=== PATIENT | male | born 1955 | race Caucasian/White ===

== ENCOUNTER 2020-05-15 16:16 | Emergency (ER) | payer BC, SELFPAY ==
--- NOTE | ~2020-05-15 | CT_ITS ---
EXAMINATION: CT brain wo con DATE: 05/15/2020 17:35 INDICATION: Left arm numbness TECHNIQUE: Computed tomography (CT) of the head was performed without intravenous contrast. The mA wa s adjusted according to patient size. Iterative reconstruction technique was employed. Exam dose: 68 1.00 mGy-cm total exam DLP. COMPARISON: None FINDINGS: No intracranial mass lesion or hemorrhage or cerebrovascular accident, midline shift shift or mass effect is evident. No subdural or epidural hematoma is detected. Bilateral nasal antral windows are noted. Bilateral ethmoidectomies. 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 There is nasal septal deviation. There is soft tissue thickening of bot h frontal sinuses. The mastoid air cells are aerated. No fracture or bone destruction of the cranial vault. Bilateral hyperostosis frontalis interna, not l ikely of any clinical significance. IMPRESSION: No significant intracranial abnormality. Reviewed, dictated and finalized at [facility] Reviewed, dictated and finalized at [facility].
[2020-05-15 16:29] VITALS: BP 173/95; PULSE 87; RESP 18; TEMP 36.6; O2SAT 100
[2020-05-15 16:35] VITALS: BP 175/117; PULSE 82; RESP 14; TEMP 36.6; O2SAT 100
--- NOTE | 2020-05-15 16:35 | ED.GENADULT ---
HPI - General Adult General Chief complaint: Neuro Symptoms/Deficit Stated complaint: NUMBNESS TO ARM, LIGHTHEADED Time Seen by Provider: 05/15/20 16:34 Source: patient and family Mode of arrival: ambulatory Limitations: no limitations History of Present Illness HPI narrative: Patient is a 64-year-old male who was referred to this facility from an urgent care for evaluation of left arm tingling and numbness that started approximately at 11 AM this morning and lasted for less than 30 seconds. Patient states he was having a bowel movement when his left arm became slightly numb and had a tingling sensation in it. He denied concurrent visual changes, difficulty with speech or difficulty with ambulation. Patient states that the numbness rapidly resolved, they did a telehealth appointment with a primary care physician who referred him to an urgent care who then referred them to our facility for assessment. Patient has a history of hypertension, he is not a smoker. He denied any concurrent chest pain, vision changes, weakness. He reported some mild lightheadedness earlier with the numbness and tingling in his arm, but none of that currently. No difficulty with ambulation. No history of stroke. Related Data Home Medications Medication Instructions Recorded Confirmed fluticasone propionate INTRANASAL 05/15/20 irbesartan-hydrochlorothiazide tablet 05/15/20 metoprolol succinate [Toprol XL] PO 05/15/20 mometasone INTRANASAL 05/15/20 Allergies Allergy/AdvReac Type Severity Reaction Status Date / Time No Known Allergies Allergy Verified 05/15/20 16:36 Review of Systems Review of Systems: Narrative: CONSTITUTIONAL: Denies fever, chills, or sweats. EYES: Denies visual changes, redness, or discharge. ENT: Denies rhinorrhea, congestion, sore throat, or otalgia. CARDIOVASCULAR: Denies chest pain, palpitations, or edema. RESPIRATORY: Denies cough or dyspnea. GASTROINTESTINAL: Denies abdominal pain, nausea, vomiting, or diarrhea. GENITOURINARY: Denies dysuria or hematuria. SKIN: Denies rash or itching. MUSCULOSKELETAL: Denies back pain, joint pain, or myalgia. NEUROLOGIC: Denies headache, denies current numbness, or weakness. [facility], [facility] Past Medical History Medical History Cleft palate Hypertension Surgical History Surgical History H/O left wrist surgery Family History Family History (Updated 04/11/19 @ 13:22 by DOCTOR UNKNOWN) Mother Hypertension Cerebrovascular accident, Onset Age: 89 Father Family history of malignant neoplasm, Onset Age: 94 Social History Social History Smoking status: Never smoker Alcohol intake: current Gender identity (if verbalized by the patient): Male Sexual Orientation (if Verbalized by the Patient): Straight or Heterosexual Exam Narrative: Exam Narrative: GENERAL: Awake, alert, conversant HEAD: Normocephalic, atraumatic. EYES: PERRLA and EOMI. ENT: Nares clear, no rhinorrhea or epistaxis. Mucous membranes moist. NECK: Supple. CHEST: No respiratory distress, breathing even and non labored HEART: Regular rate, sinus rhythm ABDOMEN:Non distended, non tender EXTREMITIES: Normal range of motion. No edema. SKIN: Warm, dry, no rash. NEURO:No focal deficits. Alert and oriented x3. Finger to nose intact bilaterally. EOMs intact without nystagmus. No facial droop/asymmetry noted bilaterally. Grimace intact. Intact sensation in face. Hearing intact bilaterally. Shoulder shrug intact. Strength 5/5 bilateral upper extremities. Strength 5/5 bilateral lower extremities. Reflexes 2+ patellar. Heel to [place] intact bilaterally. Ambulatory exam deferred. Course Vital Signs Vital signs: Vital Signs Temperature 36.6 C 05/15/20 16:29 Pulse Rate 87 05/15/20 16:29 Respiratory Rate 18 05/15/20 16:29 Bloo
--- NOTE | 2020-05-15 16:39 | ECG_ITS ---
Measurements Intervals [place] Rate: 71 P: 24 ID: [id number] QRS: 30 QRSD: 106 T: 32 QT: 363 QTc: 397 Interpretive Statements SINUS RHYTHM WITH FIRST DEGREE AV BLOCK CANNOT RULE OUT SEPTAL INFARCT, AGE INDETERMINATE ABNORMAL ECG Electronically Signed On 05-16-2020 7:41:29 CDT by Sixto Miller D.O.
--- NOTE | 2020-05-15 16:41 | PC.NURSE ---
Pt had light headedness, felt like he may pass out for 30 seconds at time of episode
[2020-05-15 16:54] LABS: Basophils Absolute Auto 0.1 K/mm3 (0.0-0.1); Basophils Percent Auto 0.8 % (0.2-1.2); Eosinophils Absolute Auto 0.1 K/mm3 (0-0.3); Eosinophils Percent Auto 1.5 % (0-4.4); Hematocrit 38.8 % (42.0-52.0); Hemoglobin 13.5 g/dL (14.0-18.0); Immature Granulocyte Absolute 0.02 K/mm3 (0.00-0.031); Immature Granulocyte Percent A 0.2 % (0-0.5); Lymphocytes Percent Auto 22.5 % (18.3-44.2); Mean Corpuscular HGB Conc 34.8 g/dl (32-36); Mean Corpuscular Hemoglobin 31.6 pg (26-34); Mean Corpuscular Volume 90.9 fl (80-100); Mean Platelet Volume 9.2 fl (7.4-10.4); Monocytes Absolute Auto 0.4 K/mm3 (0.1-0.6); Monocytes Percent Auto 4.5 % (2.6-8.5); Neutrophils Absolute Auto 6.6 K/mm3 (1.3-6.7); Neutrophils Percent Auto 70.5 % (45.5-73.1); Platelet Count Result 197 k/mm3 (150-375); Red Blood Count 4.27 M/mm3 (4.6-6.20); Red Cell Distribution Width 12.7 % (11.5-14.5); White Blood Count 9.3 K/mm3 (4.5-10.0)
[2020-05-15 16:56] LABS: Add Urine Microscopic? NO; Appearance Urine Clear (Clear); Bilirubin Urine Negative (Negative); Blood Urine Negative (Negative); Color Urine Colorless (Yellow); Glucose Urine UA Negative (Negative); Ketones Urine Negative (Negative); Leukocyte Esterase Ur Negative LEU/UL (Negative); Nitrate Urine Negative (Negative); Protein Urine Negative (Negative); Specific Grav Ur 1.008 (1.001-1.035); Urobilinogen Urine Negative mg/dL (<2.0)
[2020-05-15 17:03] VITALS: BP 149/95; BP 154/98; PULSE 78
[2020-05-15 17:04] VITALS: BP 146/102; PULSE 85; RESP 15; O2SAT 95
[2020-05-15 17:10] LABS: Blood Urea Nitrogen 19 mg/dL (9-20); Calcium 9.8 mg/dL (8.4-10.2); Carbon Dioxide 27 mmol/L (22-30); Chloride 103 mmol/L (98-107); Estimated CRCL calculation 85 ml/min; Estimated Glomerular Filt Rate > 60; Glucose 98 mg/dL (75-110); Potassium 3.9 mmol/L (3.4-5.0); Sodium 138 mmol/L (137-145)
[2020-05-15 17:53] LABS: INR 1.2; Prothrombin Time 14.9 Seconds (11.1-14.7)
[2020-05-15 17:54] LABS: Partial Thromboplastin Time 30.4 SECONDS (22.3-36.8)
[2020-05-15 17:56] LABS: Troponin I < 0.012 ng/mL (0.000-0.034)
[2020-05-15 18:10] VITALS: BP 132/88; PULSE 68; RESP 17; O2SAT 97
[2020-05-15 19:13] VITALS: BP 136/83; PULSE 70; RESP 18; O2SAT 97
== END 2020-05-15 19:15 | disposition home or self-care (01) ==
PROVIDERS: Emergency Provider Emergency Medicine; PCP Family Medicine
DX: R20.2 Paresthesia of skin (principal); I10 Essential (primary) hypertension; I44.0 Atrioventricular block, first degree; R94.31 Abnormal electrocardiogram [ECG] [EKG]
CPT/HCPCS: 36415; 70450; 80048; 81003; 84484; 85025; 85610; 85730; 93005; 99284

== ENCOUNTER 2020-06-24 00:47 | Outpatient (CLI) | payer BC, SELFPAY ==
[2020-06-24 18:19] LABS: SARS-CoV-2 RNA PCR Negative
== END 2020-06-24 00:48 | disposition home or self-care (01) ==
LOC: ANHCOVIDDT 00:47
PROVIDERS: PCP Family Medicine; Visit Provider Internal Medicine Gastroenterology
DX: Z01.812 Encounter for preprocedural laboratory examination (principal); Z20.828 Contact with and (suspected) exposure to other viral communicable diseases
CPT/HCPCS: 87635; C9803; U0003

== ENCOUNTER 2020-06-26 02:07 | Day surgery (SDC) | payer BC, SELFPAY ==
[2020-06-18 12:24] VITALS: BMI 33.5
[2020-06-26 09:20] VITALS: BP 161/94; PULSE 102; RESP 16; TEMP 36.3; O2SAT 97; BMI 32.3
[2020-06-26] MEDS: LACTATED RINGERS 1,000 ML 150 ML IV CONT (09:37)
--- NOTE | 2020-06-26 10:13 | WPDANESEPPF ---
Anes - Initial Pre Proc Eval Procedure: Operation Date: 06/26/20 10:30 Proposed Procedures p Esophagogastroduodenoscopy & Screening Colonoscopy - Yehuda Sanderson MD Date/Time: 06/26/20 10:13 Surgeon: Yehuda Sanderson MD Pre Op Diagnosis: reflux, neoplasm screening Patient Data Age: 64 Gender: M Height: 5 ft 8 in Weight: 96.4 kg Last Vital Signs Temp 97.3 F L 06/26/20 09:20 Pulse 102 H 06/26/20 09:20 Resp 16 06/26/20 09:20 BP 161/94 H 06/26/20 09:20 Pulse Ox 97 06/26/20 09:20 Allergies Allergy/AdvReac Type Severity Reaction Status Date / Time No Known Allergies Allergy Verified 06/26/20 09:19 Home Medications Medication Instructions Recorded Confirmed Type aspirin [Adult Low Dose Aspirin] 81 mg PO DAILY 30 Days #30 tablet 05/15/20 06/26/20 Rx mometasone 1 spray INTRANASAL DAILY 05/15/20 06/26/20 History doxazosin 4 mg tablet 4 mg PO DAILY #90 tablet 05/21/20 06/26/20 Rx pantoprazole 40 mg tablet,delayed 40 mg PO QAM #90 tablet 05/21/20 06/26/20 Rx release irbesartan 150 1 tablet PO DAILY #90 tablet 05/26/20 06/26/20 Rx mg-hydrochlorothiazide 12.5 mg tablet metoprolol succinate 100 mg 100 mg PO DAILY #90 tablet 05/26/20 06/26/20 Rx tablet,extended release 24 hr peg 3350-electrolytes 236 240 ml PO Q10M #4000 ml 06/11/20 Rx gram-22.74 gram-6.74 gram-5.86 gram solution Patient hx anesthesia problems: none Family hx anesthesia problems: none PMFSH Social History Social History Social History: Smoking status: Never smoker Second hand tobacco smoke exposure: No Alcohol intake: current Substance use: never Substance use type: does not use Gender identity (if verbalized by the patient): Male Anes - Eval Final PreProcedure Day of Procedure 06/26/20 10:13 Patient weight: overweight Heart: regular rate and rhythm Lungs: clear to auscultation Airway: Mallampati scale class II Neurological: alert and oriented Last oral intake: >/= 8 hours ASA classification: II Emergent: no Anesthetic plan: proceed Anesthesia type and monitoring: general GIVS and standard monitoring Informed Consent: The patient's anesthetic plan and its attendant risks and benefits were discussed with the patient/family/POA. Questions were solicited and answers provided to the satisfaction of the patient/family/POA.
--- NOTE | 2020-06-26 10:30 | PM.HPGS ---
History of Present Illness History of Present Illness Consent: Risks, benefits, and alternatives have been discussed and questions answered. Patient agrees to proceed with procedure. Chief complaint: reflux, neoplasm screening Narrative: Choco Benoit is a 64 year old male with colon polyps about 6-7 years ago, gerd controlled with ppi with egd years ago. Review of Systems Constitutional: Constitutional: Denies headache(s) and Denies weakness Eyes: Eyes: Denies blurry vision ENT: Reports Normal hearing present, Denies headache(s) and Denies neck pain Cardiovascular: Cardiovascular: Denies chest pain and Denies dyspnea Respiratory: Respiratory: Denies dyspnea Gastrointestinal: Gastrointestinal: Reports no additional gastrointestinal complaints Genitourinary: Genitourinary: Denies dysuria Musculoskeletal: Musculoskeletal: Denies neck pain Integumentary/Breasts: Skin/Breast: Denies dry skin Neurologic: Reports Normal hearing present, Denies headache(s) and Denies weakness Psychiatric: Psychiatric: Denies anxiety Endocrine: Endocrine: Denies change in body appearance Hematologic/Lymphatic: Hematologic/Lymphatic: Denies easy bleeding Allergic/Immunologic: Allergic/Immunologic: Denies urticaria PMFSH Social History Social History Social History: Smoking status: Never smoker Second hand tobacco smoke exposure: No Alcohol intake: current Substance use: never Substance use type: does not use Gender identity (if verbalized by the patient): Male Meds Home Medications and Allergies Home Medications Medication Instructions Recorded Confirmed Type aspirin [Adult Low Dose Aspirin] 81 mg PO DAILY 30 Days #30 tablet 05/15/20 06/26/20 Rx mometasone 1 spray INTRANASAL DAILY 05/15/20 06/26/20 History doxazosin 4 mg tablet 4 mg PO DAILY #90 tablet 05/21/20 06/26/20 Rx pantoprazole 40 mg tablet,delayed 40 mg PO QAM #90 tablet 05/21/20 06/26/20 Rx release irbesartan 150 1 tablet PO DAILY #90 tablet 05/26/20 06/26/20 Rx mg-hydrochlorothiazide 12.5 mg tablet metoprolol succinate 100 mg 100 mg PO DAILY #90 tablet 05/26/20 06/26/20 Rx tablet,extended release 24 hr peg 3350-electrolytes 236 240 ml PO Q10M #4000 ml 06/11/20 Rx gram-22.74 gram-6.74 gram-5.86 gram solution Allergies Allergy/AdvReac Type Severity Reaction Status Date / Time No Known Allergies Allergy Verified 06/26/20 09:19 Vital Signs Vital Signs - 24 hr 06/26/20 09:20 Temperature 97.3 F L Pulse Rate 102 H Respiratory Rate 16 Blood Pressure 161/94 H Pulse Oximetry 97 Exam Const: General: comfortable and no acute distress HENMT: General nose exam: Normal nares present Eyes: General: appearance normal, both eyes and all related structures Neck: Neck: no JVD Resp: Auscultation: clear to auscultation bilaterally Cardio: Rate: regular rate Rhythm: regular rhythm GI: Inspection: non-distended GI Palp: Yes Soft to palpation Skin: General skin exam: normal color Neuro: General: gait normal Speech: normal speech Extrem: General: normal to inspection Psych: Mental Status: mental status grossly normal Assessment and Plan Assessment and plan (1) Colon polyps: Code(s): K63.5 - Polyp of colon Status: Acute Assessment and Plan: will proceed with colonoscopy (2) Benign essential HTN: Code(s): I10 - Essential (primary) hypertension Status: Acute (3) Anemia: Code(s): D64.9 - Anemia, unspecified Status: Acute (4) GERD (gastroesophageal reflux disease): Code(s): K21.9 - Gastro-esophageal reflux disease without esophagitis Status: Acute Assessment and Plan: egd, on ppi
[2020-06-26 11:18] VITALS: BP 105/73; PULSE 73; RESP 19; O2SAT 97
[2020-06-26 11:28] VITALS: BP 131/87; PULSE 66; RESP 14; O2SAT 100
[2020-06-26 11:38] VITALS: BP 130/84; PULSE 64; RESP 13; O2SAT 100
== END 2020-06-26 11:46 | disposition home or self-care (01) ==
PROVIDERS: Visit Provider Internal Medicine Gastroenterology
PROC: 0DJ08ZZ Inspection of Upper Intestinal Tract, Via Natural or Artificial Opening Endoscopic (ICD-10-PCS; CPT 43235; principal; 2020-06-26 10:30)
DX: Z12.11 Encounter for screening for malignant neoplasm of colon (principal); K29.50 Unspecified chronic gastritis without bleeding; D13.2 Benign neoplasm of duodenum; D12.2 Benign neoplasm of ascending colon; D12.5 Benign neoplasm of sigmoid colon; K57.30 Diverticulosis of large intestine without perforation or abscess without bleeding; K64.8 Other hemorrhoids; K21.9 Gastro-esophageal reflux disease without esophagitis; I10 Essential (primary) hypertension; D64.9 Anemia, unspecified; Z79.82 Long term (current) use of aspirin; Z79.899 Other long term (current) drug therapy
CPT/HCPCS: 45385; 43239; 43251; 88305; J2001; J2704; J7120

== ENCOUNTER 2020-07-09 09:57 | Outpatient (CLI) | payer BC, SELFPAY ==
--- NOTE | ~2020-07-09 | US_ITS ---
EXAMINATION: US carotid duplex BI DATE: 07/09/2020 10:33 INDICATION: Carotid stenosis TECHNIQUE: Grayscale, color Doppler, and pulsed Doppler images of the cervical carotid arteries were obtained. The degree of vessel stenosis is placed in one of the following categories: normal, <50%, 5 0-69%, >=70% but less than near-occlusion, near-occlusion, or total occlusion. Note that percent sten osis relative to normal distal artery lumen diameter is indirectly measured from velocity measurement s as described by Peter, et al. Radiology 2003; 229:340-346. Notes: Normal: Peak systolic velocity <125 centimeters/sec and no plaque <50%. Peak systolic velocity <125 ( EDV <40; ICA/CCA PSV ratio <2.0; used these factors only a tandem lesions or low cardiac output or co ntralateral disease) 50-69 %: PSV 125-230 (EDV 40-100; ratio 2-4) >= 70% but less than near occlusion: PSV greater than 230 (EDV > 100; ratio> 4.0) Near Occlusion: PSV that is variable; markedly narrowed lumen Occlusion: Absent flow on color/spectral Doppler and no lumen on borjas scale. COMPARISON: None. FINDINGS: RIGHT: The right common carotid artery (CCA) peak systolic velocity (PSV) is 78 cm/s. The right internal car otid artery (ICA) PSV is 67 cm/s. The right ICA end-diastolic velocity (EDV) is 16 cm/s. The right IC A/CCA PSV ratio is 0.9. The external carotid artery (ECA) PSV is 70 cm/s. There is antegrade flow in the right vertebral artery. LEFT: The left CCA PSV is 75 cm/s. The left ICA PSV is 47 cm/s. The left ICA EDV is 19 cm/s. The left ICA/C CA PSV ratio is 0.6. The ECA PSV is 58 cm/s. There is antegrade flow in the left vertebral artery. IMPRESSION: 1. Less than 50% stenosis in the right internal carotid artery by sonographic criteria. 2. Less than 50% stenosis in the left internal carotid artery by sonographic criteria. Reviewed, dictated and finalized at [facility]. IMPRESSION: 1. Less than 50% stenosis in the right internal carotid artery by sonographic rebecca tate. 2. Less than 50% stenosis in the left internal carotid artery by sonographic marques cazares.
== END 2020-07-09 09:58 | disposition home or self-care (01) ==
PROVIDERS: PCP Student in an Organized Health Care Education/Training Program; Visit Provider Student in an Organized Health Care Education/Training Program
DX: G45.9 Transient cerebral ischemic attack, unspecified (principal); I65.23 Occlusion and stenosis of bilateral carotid arteries
CPT/HCPCS: 93880

== ENCOUNTER 2020-07-27 14:09 | Outpatient (CLI) | payer BC, SELFPAY ==
--- NOTE | 2020-07-27 | ECHO_ITS ---
Patient Info Name: Choco Benoit Age: 65 years : 1955 Gender: Male Ht: 68 in Wt: 215 lbs BSA: 2.20 m2 HR: 70 bpm BP: 186 / 113 mmHg Heart Rhythm: Sinus Rhythm Technical Quality: Good Exam Date: 07/27/2020 2:33 PM Exam Location: [facility] Patient Status: Outpatient Admit Date: 07/27/2020 Staff Ordering Physician: CristalGarret DO Merchandiser: Cara Ptee RDCS Attending Provider: CristalGarret DO Exam Type: CA echo doppler color flow Study Info Indications I63.219 - Cerebral infarction due to unspecified occlusion or stenosis of unspecified vertebral arteries Complete two-dimensional, color flow and Doppler transthoracic echocardiogram is performed. Summary 1. Complete two-dimensional, color flow and Doppler transthoracic echocardiogram is performed. 2. Left ventricular chamber dimension is normal. 3. Left ventricular systolic function is normal, estimated at 60-65%. 4. There is trace mitral valve regurgitation. 5. No likely cardioembolic source is identified. Left Ventricle Left ventricular chamber dimension is normal. Left ventricular systolic function is normal, estimated at 60-65%. The left ventricular diastolic function is normal. Right Ventricle Right ventricular chamber dimension is normal. Left Atria Left atrial chamber dimension is normal. Right Atria Right atrial chamber dimension is normal. Aortic Valve The aortic valve is normal. Pulmonic Valve The pulmonic valve is normal. Mitral Valve The mitral valve has normal leaflets. There is trace mitral valve regurgitation. Tricuspid Valve The tricuspid valve leaflets are normal. Pericardium/Pleural The pericardium appears normal. Aorta The aortic root size at the sinus of Valsalva is normal. Left Ventricular Outflow Tract Name Value Normal LVOT 2D LVOT Diameter 2.0 cm LVOT Doppler LVOT Peak Gradient 4 mmHg LVOT Mean Gradient 2 mmHg LVOT VTI 22 cm LVOT VTI/AV VTI Ratio 0.9 LVOT Stroke Volume 67 ml LVOT CO 4.0 l/min LVOT CI 1.8 l/min/m2 Mitral Valve Name Value Normal MV Doppler MV Decel [place] 345 cm/s2 MV PHT 68 ms MV Area (PHT) 3.2 cm2 4.0-5.0 MV Diastolic Function MV E Peak Velocity 81 cm/s MV A Peak Velocity 87 cm/s MV E/A 0.9 MV Decel Time 235 ms MV Annular TDI
== END 2020-07-27 14:10 | disposition home or self-care (01) ==
PROVIDERS: PCP Student in an Organized Health Care Education/Training Program; Visit Provider Student in an Organized Health Care Education/Training Program
DX: G45.9 Transient cerebral ischemic attack, unspecified (principal)
CPT/HCPCS: 93306

== ENCOUNTER 2024-02-02 00:34 | Day surgery (SDC) | payer MEDICARE, SELFPAY ==
[2024-01-24 13:09] VITALS: BMI 35.7
--- NOTE | 2024-01-31 15:03 | SUR.PREOP ---
Patient called regarding upcoming procedure. Reviewed preop instructions, appointment times, and procedure prep.
[2024-02-02] MEDS: LACTATED RINGERS 1,000 ML 150 ML IV CONT (12:59)
[2024-02-02 13:00] VITALS: BP 152/82; PULSE 93; RESP 16; TEMP 36.2; O2SAT 99
--- NOTE | 2024-02-02 13:02 | WPDANESEPPF ---
Anes - Initial Pre Proc Eval Procedure: Operation Date: 02/02/24 14:00 Proposed Procedures p Esophagogastroduodenoscopy & Colonoscopy - Yehuda Sanderson MD Date/Time: 02/02/24 13:02 Surgeon: Yehuda Sanderson MD Pre Op Diagnosis: hx colon polyps,Anemia,Other specified diseases of Patient Data Age: 68 Gender: M Height: 1.73 m Weight: 106.8 kg Last Vital Signs Temp 97.2 F L 02/02/24 13:00 Pulse 93 02/02/24 13:00 Resp 16 02/02/24 13:00 BP 152/82 H 02/02/24 13:00 Pulse Ox 99 02/02/24 13:00 O2 Del Method Room Air 02/02/24 13:00 Allergies Allergy/AdvReac Type Severity Reaction Status Date / Time No Known Allergies Allergy Verified 02/02/24 12:47 Home Medications Medication Instructions Recorded Confirmed Type aspirin 81 mg tablet,delayed 81 mg PO DAILY 30 days #30 tabs 05/15/20 01/24/24 Rx release (Adult Low Dose Aspirin) mometasone 50 mcg/actuation nasal 1 spray intranasal DAILY 05/15/20 01/24/24 History spray pantoprazole 40 mg tablet,delayed 40 mg PO QAM #90 tabs 05/21/20 01/24/24 Rx release irbesartan 150 1 tablet PO DAILY #90 tabs 05/26/20 01/24/24 Rx mg-hydrochlorothiazide 12.5 mg tablet metoprolol succinate 100 mg 100 mg PO DAILY #90 tabs 05/26/20 02/02/24 Rx tablet,extended release 24 hr (Toprol XL) ferrous sulfate 325 mg (65 mg 325 mg PO DAILY 12/28/23 01/24/24 History iron) capsule,extended release rosuvastatin 5 mg tablet 5 mg PO DAILY 12/28/23 01/24/24 History doxazosin 8 mg tablet 8 mg PO HS 01/24/24 01/24/24 History Patient hx anesthesia problems: none Family hx anesthesia problems: none Results Review: All pre-operative results and documents have been reviewed as part of the pre-operative evaluation. [facility] Past Medical History Medical History (Updated 12/28/23 @ 10:17 by Yehuda Sanderson MD) Benign essential HTN Cleft palate Colon polyps GERD (gastroesophageal reflux disease) Hypertension Small bowel polyp Surgical History Surgical History H/O left wrist surgery Family History Family History Mother Hypertension Cerebrovascular accident, Onset Age: 89 Father Family history of malignant neoplasm, Onset Age: 94 Social History Social History Social History: Smoking status: Never smoker Second hand tobacco smoke exposure: No Alcohol intake: current Alcohol use details: occasionally Substance use: never Substance use type: does not use Living arrangements: with family Occupation/Education: occupation Gender identity (if verbalized by the patient): Male Sexual Orientation (if Verbalized by the Patient): Straight or Heterosexual Spiritual care concerns: No Anes - Eval Final PreProcedure Day of Procedure 02/02/24 13:02 Patient weight: obese Heart: regular rate and rhythm Lungs: clear to auscultation Airway: Mallampati scale class II Neurological: alert and oriented Last oral intake: >/= 8 hours ASA classification: III Emergent: no Anesthetic plan: proceed Anesthesia type and monitoring: general GIVS and standard monitoring Results Review: All pre-operative results and documents have been reviewed as part of the pre-operative evaluation. Informed Consent: The patient's anesthetic plan and its attendant risks and benefits were discussed with the patient/family/POA. Questions were solicited and answers provided to the satisfaction of the patient/family/POA.
--- NOTE | 2024-02-02 13:05 | PM.HPGS ---
History of Present Illness History of Present Illness Consent: Risks, benefits, and alternatives have been discussed and questions answered. Patient agrees to proceed with procedure. Chief complaint: hx colon polyps,Anemia,Other specified diseases of Narrative: Choco Benoit is a 68 year old male here for egd and colonoscopy, mild anemia, hgb 12.5 and low ferritin, denies overt gib, no new gi issues and started using iron given by PCP. I saw him 2020 because controlled gerd for which has been taking ppi for years, mild gastritis, no h pylori, also had TA polyp in duodenum, colonoscopy with TA polyps. Review of Systems Review of Systems: All systems reviewed & are unremarkable except as noted in HPI and below PMFSH Past Medical History Medical History (Updated 12/28/23 @ 10:17 by Yehuda Sanderson MD) Benign essential HTN Cleft palate Colon polyps GERD (gastroesophageal reflux disease) Hypertension Small bowel polyp Surgical History Surgical History H/O left wrist surgery Family History Family History Mother Hypertension Cerebrovascular accident, Onset Age: 89 Father Family history of malignant neoplasm, Onset Age: 94 Social History Social History Social History: Smoking status: Never smoker Second hand tobacco smoke exposure: No Alcohol intake: current Alcohol use details: occasionally Substance use: never Substance use type: does not use Living arrangements: with family Occupation/Education: occupation Gender identity (if verbalized by the patient): Male Sexual Orientation (if Verbalized by the Patient): Straight or Heterosexual Spiritual care concerns: No Meds Home Medications and Allergies Home Medications Medication Instructions Recorded Confirmed Type aspirin 81 mg tablet,delayed 81 mg PO DAILY 30 days #30 tabs 05/15/20 01/24/24 Rx release (Adult Low Dose Aspirin) mometasone 50 mcg/actuation nasal 1 spray intranasal DAILY 05/15/20 01/24/24 History spray pantoprazole 40 mg tablet,delayed 40 mg PO QAM #90 tabs 05/21/20 01/24/24 Rx release irbesartan 150 1 tablet PO DAILY #90 tabs 05/26/20 01/24/24 Rx mg-hydrochlorothiazide 12.5 mg tablet metoprolol succinate 100 mg 100 mg PO DAILY #90 tabs 05/26/20 02/02/24 Rx tablet,extended release 24 hr (Toprol XL) ferrous sulfate 325 mg (65 mg 325 mg PO DAILY 12/28/23 01/24/24 History iron) capsule,extended release rosuvastatin 5 mg tablet 5 mg PO DAILY 12/28/23 01/24/24 History doxazosin 8 mg tablet 8 mg PO HS 01/24/24 01/24/24 History Allergies Allergy/AdvReac Type Severity Reaction Status Date / Time No Known Allergies Allergy Verified 02/02/24 12:47 Vital Signs Vital Signs - 24 hr 02/02/24 13:00 Temperature 97.2 F L Pulse Rate 93 Respiratory Rate 16 Blood Pressure 152/82 H Pulse Oximetry 99 Oxygen Delivery Room Air Exam Const: General: comfortable and no acute distress HENMT: Face/Nose/Sinus: Normal nares present Eyes: General: appearance normal, both eyes and all related structures Neck: Neck: no JVD Resp: Auscultation: clear to auscultation bilaterally Cardio: Rate: regular rate Rhythm: regular rhythm GI: Inspection: non-distended GI Palp: Yes Soft to palpation Skin: General skin exam: normal color Neuro: General: gait normal Speech: normal speech Extrem: General: normal to inspection Psych: Mental Status: mental status grossly normal Assessment and Plan Assessment and plan (1) Anemia: Code(s): D64.9 - Anemia, unspecified Status: Acute Assessment and Plan: egd and colonoscopy to assess if gi source of anemia (2) Colon polyps: Code(s): K63.5 - Polyp of colon Status: Acute
[2024-02-02 13:40] VITALS: BP 108/57; PULSE 80; RESP 16; O2SAT 99
--- NOTE | 2024-02-02 13:40 | SUR.OPER ---
EGD START 1311, END 1320 COLONOSCOPY START 1326, END 1338
[2024-02-02 13:50] VITALS: BP 123/77; PULSE 77; RESP 28; O2SAT 100
[2024-02-02 14:00] VITALS: BP 141/72; PULSE 64; RESP 25; O2SAT 100
== END 2024-02-02 14:10 | disposition home or self-care (01) ==
PROVIDERS: PCP Student in an Organized Health Care Education/Training Program; Visit Provider Internal Medicine Gastroenterology
PROC: 0DJ08ZZ Inspection of Upper Intestinal Tract, Via Natural or Artificial Opening Endoscopic (ICD-10-PCS; CPT 43235; principal; 2024-02-02 14:00)
DX: D64.9 Anemia, unspecified (principal); D12.2 Benign neoplasm of ascending colon; K57.30 Diverticulosis of large intestine without perforation or abscess without bleeding; K64.8 Other hemorrhoids; D13.2 Benign neoplasm of duodenum; K21.9 Gastro-esophageal reflux disease without esophagitis; I10 Essential (primary) hypertension; Z79.82 Long term (current) use of aspirin; E66.9 Obesity, unspecified; Z68.35 Body mass index [BMI] 35.0-35.9, adult
CPT/HCPCS: 45385; 43239; 43251; 88305; J2704; J7120

== ENCOUNTER 2024-04-08 19:00 | Emergency (ER) | payer MEDICARE, SELFPAY ==
[2024-04-08] VITALS (8 sets, daily range): BP systolic 158–205; BP diastolic 88–115; PULSE 64–87; RESP 12–18; TEMP 36.4; O2SAT 95–99
--- NOTE | 2024-04-08 19:45 | ECG_ITS ---
Test Date: 2024-04-08 20:03:32 Measurements Intervals [place] Rate: 64 P: 22 LA: 213 QRS: 29 QRSD: 94 T: 39 QT: 375 QTc: 389 Interpretive Statements SINUS RHYTHM WITH FIRST DEGREE AV BLOCK No previous ECG available for comparison Electronically Signed On 04-09-2024 10:51:07 CDT by Ewa Soliman M.D.
--- NOTE | 2024-04-08 19:45 | ED.GENADULT ---
HPI - General Adult General Chief complaint: Recheck/Abnormal Lab/Rx Stated complaint: high bp Time Seen by Provider: 04/08/24 19:34 Source: patient Mode of arrival: ambulatory Limitations: no limitations History of Present Illness HPI narrative: 68-year-old male here for high blood pressure. Takes metoprolol. Notices blood pressure is elevated today after he said he felt slightly fatigued any checked it. Has not taken his blood pressure reading for several months. Says he feels slightly fatigued today but otherwise no complaints. No chest pain or shortness of breath Related Data Home Medications Medication Instructions Recorded Confirmed mometasone 50 mcg/actuation nasal 1 spray intranasal DAILY 05/15/20 01/24/24 spray ferrous sulfate 325 mg (65 mg 325 mg PO DAILY 12/28/23 01/24/24 iron) capsule,extended release rosuvastatin 5 mg tablet 5 mg PO DAILY 12/28/23 01/24/24 doxazosin 8 mg tablet 8 mg PO HS 01/24/24 01/24/24 Allergies Allergy/AdvReac Type Severity Reaction Status Date / Time No Known Allergies Allergy Verified 04/08/24 19:08 Review of Systems Review of Systems: All systems reviewed & are unremarkable except as noted in HPI and below PMFSH Past Medical History Medical History Benign essential HTN Cleft palate Colon polyps GERD (gastroesophageal reflux disease) Hypertension Small bowel polyp Surgical History Surgical History H/O left wrist surgery Family History Family History Mother Hypertension Cerebrovascular accident, Onset Age: 89 Father Family history of malignant neoplasm, Onset Age: 94 Social History Social History Social History: Smoking status: Never smoker Second hand tobacco smoke exposure: No Alcohol intake: current Alcohol use details: occasionally Substance use: never Substance use type: does not use Living arrangements: with family Occupation/Education: occupation Gender identity (if verbalized by the patient): Male Sexual Orientation (if Verbalized by the Patient): Straight or Heterosexual Spiritual care concerns: No Exam Narrative: Constitutional: Generally well appearing, no acute distress Head: Atraumatic, no deformities. Eyes: Pupils equal, round, and reactive to light. Neck: Supple, no tracheal deviation, no JVD. ENMT: Mucous membranes moist Cardiovascular: S1, S2 auscultated. No murmurs, rubs, or gallops. No S3/S4. Normal Distal pulses. No peripheral edema. Respiratory: Lung sounds equal. No wheezes, rales, or rhonchi. Gastrointestinal: Abdomen was soft and non-tender. Non-distended. No rebound or guarding. Genitourinary: Deferred Musculoskeletal: Normal muscle tone and bulk. No obvious deformities or tenderness over extremities. Skin: No rashes. Neurological: Strength 5/5 in extremities. Cranial nerves I-XII grossly intact. Distal sensation intact. Mental Status: Awake, alert and oriented x3. Follows commands Course Vital Signs Vital signs: Vital Signs Temperature 36.4 C 04/08/24 19:05 Pulse Rate 87 04/08/24 19:05 Respiratory Rate 18 04/08/24 19:05 Blood Pressure 205/105 H 04/08/24 19:05 Pulse Oximetry 99 04/08/24 19:05 Oxygen Delivery Room Air 04/08/24 19:05 Temperature 36.4 C 04/08/24 19:05 Pulse Rate 64 04/08/24 19:41 Respiratory Rate 13 04/08/24 19:41 Blood Pressure 171/101 H 04/08/24 19:41 Pulse Oximetry 97 04/08/24 19:41 Oxygen Delivery Room Air 04/08/24 19:05 Medical Decision Making MDM Narrative Medical decision making narrative: 68-year-old male here for hypertension. Asymptomatic. On exam blood pressure is 171/101. Was 205/105 in triage. Otherwise neurovascularly intact. Obtaining basic lab
[2024-04-08 20:18] LABS: Basophils Absolute Auto 0.1 K/mm3 (0.0-0.1); Basophils Percent Auto 1.1 % (0.2-1.2); Eosinophils Absolute Auto 0.3 K/mm3 (0-0.3); Eosinophils Percent Auto 3.4 % (0-4.4); Hematocrit 37.4 % (42.0-52.0); Hemoglobin 12.9 g/dL (14.0-18.0); Immature Granulocyte Absolute 0.02 K/mm3 (0.00-0.031); Immature Granulocyte Percent A 0.3 % (0-0.5); Lymphocytes Absolute Auto 2.61 K/mm3 (0.9-3.2); Lymphocytes Percent Auto 34.4 % (18.3-44.2); Mean Corpuscular HGB Conc 34.5 g/dl (32-36); Mean Corpuscular Hemoglobin 31.9 pg (26-34); Mean Corpuscular Volume 92.6 fl (80-100); Mean Platelet Volume 8.5 fl (7.4-10.4); Monocytes Absolute Auto 0.6 K/mm3 (0.1-0.6); Monocytes Percent Auto 7.7 % (2.6-8.5); Neutrophils Percent Auto 53.1 % (45.5-73.1); Platelet Count Result 180 k/mm3 (150-375); Red Blood Count 4.04 M/mm3 (4.6-6.20); Red Cell Distribution Width 12.5 % (11.5-14.5); White Blood Count 7.6 K/mm3 (4.5-10.0)
[2024-04-08] MEDS: hydrALAZINE HCL 20 MG/ML VIAL 10 MG IV PUSH (20:22)
[2024-04-08 20:29] LABS: Alanine Aminotransferase 27 U/L (6-50); Albumin Level 4.2 g/dL (3.5-5.1); Alkaline Phosphatase 73 U/L (38-126); Anion Gap 3 mmol/L (4-12); Aspartate Amino Transferase 27 U/L (17-59); Bilirubin,Total 0.6 mg/dL (0.2-1.3); Blood Urea Nitrogen 18 mg/dL (9-20); Calcium 10.1 mg/dL (8.4-10.2); Carbon Dioxide 30 mmol/L (22-30); Chloride 104 mmol/L (98-107); Estimated CRCL calculation 85 ml/min; Estimated Glomerular Filt Rate > 60; Glucose 95 mg/dL (65-110); Sodium 137 mmol/L (137-145)
[2024-04-08 20:40] LABS: Troponin I < 0.012 ng/mL (0.000-0.034)
== END 2024-04-08 21:13 | disposition home or self-care (01) ==
PROVIDERS: Emergency Provider Emergency Medicine; PCP Student in an Organized Health Care Education/Training Program
DX: I10 Essential (primary) hypertension (principal); K21.9 Gastro-esophageal reflux disease without esophagitis; Z86.010 Personal history of colon polyps; I44.0 Atrioventricular block, first degree; Z79.899 Other long term (current) drug therapy
CPT/HCPCS: 36415; 80053; 84484; 85025; 93005; 96374; 99284; J0360

== ENCOUNTER 2024-12-20 14:15 | Emergency (ER) | payer MEDICARE, SELFPAY ==
--- NOTE | ~2024-12-20 | XR_ITS ---
EXAMINATION: XR chest 2V 12/20/2024 15:04 INDICATION: Chest discomfort. Hypertension. PROCEDURE: 2 view chest COMPARISON: No prior studies for comparison. FINDINGS: The lungs are clear. The cardiomediastinal silhouette is within normal limits. There are no pleural effusions. There is no pneumothorax suspected. IMPRESSION: 1: NO ACUTE CARDIOPULMONARY DISEASE. Reviewed, dictated and finalized at location L. OR BEAUTY SALON ASSISTANT
--- NOTE | ~2024-12-20 | CT_ITS ---
EXAMINATION: CT brain wo con DATE: 12/20/2024 17:21 INDICATION: Headache. TECHNIQUE: Computed tomography (CT) of the head was performed without intravenous contrast. The mA wa s adjusted according to patient size. Iterative reconstruction technique was employed. The dose-lengt h product was 681.00 mGy-cm. COMPARISON: Head CT 05/15/2020 FINDINGS: There is no intracranial hemorrhage, acute infarction, or abnormal intracranial mass lesion . The ventricles are normal in size. There are likely changes of ocular lens replacement surgeries. T here is mucosal thickening in the paranasal sinuses. There are surgical changes of the paranasal sinu ses. The mastoid air cells are normal. There is a 16 mm cyst in the superior scalp, likely a sebaceou s cyst. IMPRESSION: 1. Normal brain. Reviewed, dictated and finalized at location A. BITION DESIGNER IMPRESSION: 1. Normal brain.
--- OUTSIDE RECORDS SUMMARY | 2024-12-20 14:19 | XMS_ITS | Referral Summary ---
Author Organization [facility] Address [address] [place] [address] Care Team Providers Care Special Education Professor Name Role Phone Unavailable Primary Care Provider Unavailabl e Source Comments [facility],non-owned Affiliates and Associated Physician Practices is amultiple site organization consisting of ambulatory clinics and hospital sitesin [place], [place], [place] and [place]. This disclosure is being madepursuant to the Care Everywhere program and may not contain all information available regarding this patient. Last updated 18.[facility] [employer] Social History Tobacco Use Types Packs/Day Years Used Date Smoking Tobacco: Never Assessed Sex and Gender Information Value Date Recorded Sex Assigned at Not on file Gender Identity Not on file Sexual Orientation Not on file Plan of Treatment Not on file
--- OUTSIDE RECORDS SUMMARY | 2024-12-20 14:19 | XMS_ITS | Clinical Summary ---
Author Organization [facility] Address [address] [place] [id number] Care Team Providers Care Plain Goods Hemmer Name Role Phone Juan Carloslauridarwincarlos Garret Rocha DO Primary Care Provide r Allergies No known active allergies Medications doxazosin (CARDURA) 4 mg tablet Take 2 tablets (8 mg total) by mouth nightly Active irbesartan-hydr ochlorothiazide (AVALIDE) 150-12.5 mg per tablet Take 1 tablet by mouth daily Active metoprolol XL (TOPROL-XL) 200 mg 24 hr tablet Take 0.5 tablets (100 mg total) by mouth daily Active pantoprazole DR (PROTONIX) 40 mg EC tablet Take 1 tablet (40 mg total) by mouth daily Active aspirin 81 mg chewable tablet Take 1 tablet (81 mg total) by mouth daily Active iron bisgly,ps-FA-B- C#12-succ 65 mg-65 mg -1,000 mcg (24) tablet Take by mouth Active rosuvastatin (CRESTOR) 5 mg tablet Take 1 tablet (5 mg total) by mouth daily Active mometasone (NASONEX) 50 mcg/actuation nasal sprayIndication s:Polyp of nasal cavity ADMINISTER 2 SPRAYS INTO EACH NOSTRIL DAILY 51 g 3 4 Active Active Problems Problem Noted Date Diagnosed Date 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 Cleft palate and cleft lip 05/19/2022 Nasal polyps 07/23/2020 Deviated nasal septum 07/23/2020 Chronic pansinusitis 05/16/2019 Surgical History Surgery Date Site/Laterality Comments HERNIA REPAIR RHINOPLASTY FOR CLEFT LIP / PALATE PHARYNGEAL FLAP NASAL POLYP EXCISION WRIST FRACTURE SURGERY SINUS SURGERY Medical History Medical History Date Comments Allergic rhinitis Hypertension GERD (gastroesophageal reflux disease) Sinusitis Stroke (HCC) HL (hearing loss) Family History Medical History Relation Name Comments Cancer Father Relation Name Status Comments Father Social History Tobacco Use Types Packs/Day Years Used Date Smoking Tobacco: Never Smokeless Tobacco: Never Alcohol Use Standard Drinks/Week Comments Yes 0 (1 standard drink = 0.6 oz pur e alcohol) Personal Safety Answer Date Recorded Getting School Help Needed Not on file 11/21 Sex and Gender Information Value Date Recorded Sex Assigned at Not on file Legal Sex Male 3:37 PM CDT Gender Identity Not on file Sexual Orientation Not on file Obstetrics History Last Filed Vital Signs Vital Sign Reading Time Taken Comments Blood Pressure 172/100 05/16/2019 12:13 PM CDT Pulse - - Temperature 36.9 C (98.5 F) 07/23/2020 3:08 PM CDT Respiratory Rate 20 01/01/2024 10:13 AM CORONER FORENSIC TECHNICIAN Oxygen Saturation - - Inhaled Oxygen Concentration - - Weight 97.1 kg (214 lb) 01/01/2024 10:13 AM CORONER FORENSIC TECHNICIAN Height 172.7 cm (5' 8 ) 01/01/2024 10:13 AM CORONER FORENSIC TECHNICIAN Body Mass Index 32.54 01/01/2024 10:13 AM CORONER FORENSIC TECHNICIAN Plan of Treatment Health Maintenance Due Date Last Done Comments Colon Cancer Screening-Colonoscopy 1957 Depression Screening 1957 Fall Risk Assessment 1957 Hepatitis C Screening 1957 Prostate Cancer Screening-PSA 1957 Hepatitis B Screening 1975 Pneumococcal vaccine 65+ (1 of 1 - PCV) 2007 Well Visit 65+ 2022 Covid-19 Vaccine (3 - 2023-2 5 season) 2024 08/22/2021, 01/03/2021 Influenza Vaccine (#1) 2024 , 07/06/2021, 07/30/2020, Additional history exists DTaP/Tdap/Td Vaccine (2 - Td or Tdap) 06/02/2032 06/02/2022 Zoster Vaccine Completed 03/23/2022, 07/06/2021 Insurance [employer] CHOICE MEDICARE PPO BLUE ACCESS CHOICE [place] Care Teams Plain Goods Hemmer Relationship Specialty Start Date End Date Garret Bee DO [address] [place] [id number] PCP - General Family Medicine 07/13/20
--- OUTSIDE RECORDS SUMMARY | 2024-12-20 14:19 | XMS_ITS | Encounter Summary ---
Author Organization [facility] Address [address] [place] [address] Care Team Providers Care Financial Advisor Trainee Name Role Phone Unavailable Primary Care Provider Unavailabl e Encounter Details Date Type Department Care Team (Late st Contact Info) Description 08/15/2023 Lab Requisition [facility] - DermPath Lab [address] [place] [address] Steve Maynard PA-C [address] [place] [address] Dermatitis, unspecified Social History Tobacco Use Types Packs/Day Years Used Date Smoking Tobacco: Never Assessed Sex and Gender Information Value Date Recorded Sex Assigned at Not on file Gender Identity Not on file Sexual Orientation Not on file documented as of this encounter Plan of Treatment Not on file documented as of this encounter Procedures Procedure Name Priority Date/Time Associated Diagnosis Comments DERMATOPATHOLOGY Routine 08/15/2023 12:0 0 AM CDT Dermatitis, unspecified documented in this encounter Results * DERMATOPATHOLOGY (08/15/2023 12:00 AM CDT) Case Report Dermatopathology Report Case: [id number] Authorizing Provider: Steve Maynard PA-C Collected: 08/15/2023 12:00 AM Ordering Location: [facility] DermPath Lab Received: 08/16/2023 11:29 AM Pathologist: Erlinda Carcamo MD Specimen: Skin, right anterior proximal upper arm 3 2:48 PM CDT DERMATOPATHOLOGY LABORATORY Final Diagnosis Specimen A. 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 Allergy vs Tinea vs eczema 3 2:48 PM CDT DERMATOPATHOLOGY LABORATORY Gross Description Specimen A: Received is one formalin filled container labeled with the patient's name and designated right anterior proximal upper arm. The specimen consists of a punch biopsy measuring 4x4x2 mm. Jar 0. 3 2:48 PM CDT DERMATOPATHOLOGY LABORATORY Microscopic Description Specimen A. SKIN, right anterior proximal upper arm: There is focal parakeratosis and spongiosis. In the dermis there is a mainly superficial perivascular lymphohistiocytic inflammatory infiltrate with rare eosinophils. Focal interface changes are noted. Grocott's methenamine silver (GMS) stain fails to highlight fungal elements in the available sections. COMMENT: The histological differential diagnosis includes a hypersensitivity reaction, such as to contact or drug, an eczematous process, and less likely the urticarial phase of bullous pemphigoid. 3 2:48 PM CDT DERMATOPATHOLOGY LABORATORY Disclaimer An external and internal positive and negative controls are appropriate for the histochemical, immunohistochemical and immunofluorescence stain(s) in this case (if any), except where stated explicitly. The performance characteristics of the stain(s) cited in this report were developed and its performance characteristic determined by the Dermatopathology Laboratory at [facility], directed by Dr. Chencho Ernst. These tests need not be, and therefore are not, approved by the [place] Food and Drug Administration. The tests are used for clinical purposes. Billing Codes Specimen Charges Stain Charges 92205 1 50175 1 3 2:48 PM CDT DERMATOPATHOLOGY LABORATORY Embedded Images 3 2:48 PM CDT DERMATOPATHOLOGY LABORATORY Pathology/Cytolog y TISSUE SPECIMEN FROM SKIN / Unknown 08/15/2023 08/16/2023 11:29 AM CDT Steve Maynard PA-C LAB - PATHOLOGY/CYTO LOGY ORDERABLES DERMATOPATHOLOGY LABORATORY [facility] - Department of Dermatology [address] [place], [place] [id number] [place] [address] documented in this encounter Visit Diagnoses Diagnosis Dermatitis, unspecified documented in this encounter
--- OUTSIDE RECORDS SUMMARY | 2024-12-20 14:19 | XMS_ITS | Referral Summary ---
Author Organization [facility] Address [address] [place] [phone] Care Team Providers Care Rn Circulating Name Role Phone Juan Carloslauridarwincarlos Garret Rocha [...] Deviated nasal septum 07/23/2020 Chronic pansinusitis 05/16/2019 Social History Tobacco Use Types Packs/Day Years [...] on file Sexual Orientation Not on file Last Filed Vital Signs Vital Sign Reading Time Taken Comments Blood Pressure 172/100 05/16/2019 12:13 PM CDT Pulse - - Temperature 36.9 C (98.5 F) 07/23/2020 3:08 PM CDT Respiratory Rate 20 01/01/2024 10:13 AM ALTERNATIVE FINANCING SPECIALIST Oxygen Saturation - - Inhaled Oxygen Concentration - - Weight 97.1 kg (214 lb) 01/01/2024 10:13 AM ALTERNATIVE FINANCING SPECIALIST Height 172.7 cm (5' 8 ) 01/01/2024 10:13 AM ALTERNATIVE FINANCING SPECIALIST Body Mass Index 32.54 01/01/2024 10:13 AM ALTERNATIVE FINANCING SPECIALIST Plan of Treatment Not on file Insurance [employer] MEDICARE PPO [employer] [place] Care Teams Rn Circulating Relationship Specialty Start Date End Date Garret Bee DO [address] [place] [id number] PCP - General Family Medicine 07/13/20
--- OUTSIDE RECORDS SUMMARY | 2024-12-20 14:19 | XMS_ITS | Clinical Summary ---
Author Organization [facility] Address [address] [place] [address] Care Team Providers Care Chain Sales Representative Name Role Phone Unavailable Primary Care Provider Unavailabl e Source Comments [facility],non-owned Affiliates and Associated Physician Practices is amultiple site organization consisting of ambulatory clinics and hospital sitesin [place], [place], [place] and [place]. This disclosure is being madepursuant to the Care Everywhere program and may not contain all information available regarding this patient. Last updated 18.[facility] [place] Social History Tobacco Use Types Packs/Day Years Used Date Smoking Tobacco: Never Assessed Sex and Gender Information Value Date Recorded Sex Assigned at Not on file Gender Identity Not on file Sexual Orientation Not on file Plan of Treatment Health Maintenance Due Date Last Done Comments COLOGUARD (AGES 45-75) - COL ON CA SCREENING 1957 COLON MONITORING 1957 COLONOSCOPY - COLON CA SCREENING 1957 CT COLONOGRAPHY - COLON CA SCREENING 1957 Colorectal Cancer Screening 1957 FIT - COLON CA SCREENING 1957 FLEX SIG - COLON CA SCREENING 1957 LIPID TESTING 1957 HEPATITIS C SCREENING 07/08/1975 DTAP/TDAP/TD VACCINES (1 - Tdap) 1976 PNEUMOCOCCAL VACCINE 50+ (1 of 1 - PCV) 2007 ZOSTER VACCINE (1 of 2) 2007 COVID-19 VACCINE ( - 2023-2 5 season) 2024 INFLUENZA VACCINE (#1) 2024 DEPRESSION SCREENING 10/30/2024 MEDICARE AWV CALENDAR YEAR 2024 Respiratory Syncytial Virus (RSV) Vaccine Pt: or over 60 yrs (1 - 1-dose 75+ series) 2032 HEPATITIS B VACCINE Aged Out No longe r eligible based on patient's age to complete this topic HIB VACCINE Aged Out No longer eligi ble based on patient's age to complete this topic HPV VACCINE Aged Out No longer eligi ble based on patient's age to complete this topic MENINGOCOCCAL (Group B) VACCINE Aged Out No longer eligible based on patient's age to complete this topic MENINGOCOCCAL VACCINE Aged Out No jean angel eligible based on patient's age to complete this topic
--- OUTSIDE RECORDS SUMMARY | 2024-12-20 14:19 | XMS_ITS | Patient Health Summary ---
Author Organization [facility] Address [address] [place] [address] Care Team Providers Care Sanitation Director Name Role Phone Unavailable Primary Care Provider Unavailabl e Note from [facility],non-owned Affiliates and Associated Physician Practices is amultiple site organization consisting of ambulatory clinics and hospital sitesin [place], [place], [place] and [place]. This disclosure is being madepursuant to the Care Everywhere program and may not contain all information available regarding this patient. Last updated 18.[facility] Social History Tobacco Use Types Packs/Day Years Used Date Smoking Tobacco: Never Assessed Sex and Gender Information Value Date Recorded Sex Assigned at Not on file Gender Identity Not on file Sexual Orientation Not on file Procedures * DERMATOPATHOLOGY(Performed 08/15/2023) Performed for Dermatitis, unspecified Results * DERMATOPATHOLOGY (08/15/2023 12:00 AM CDT) Case Report Dermatopathology Report Case: [id number] Authorizing Provider: Steve Maynard PA-C Collected: 08/15/2023 12:00 AM Ordering Location: [facility] Derm[facility] Lab Received: 08/16/2023 11:29 AM Pathologist: [...] characteristic determined by the Dermatopathology Laboratory at [facility], directed by Dr. Chencho Ernst. These tests need not be, and therefore are not, approved by the [place] Food and Drug Administration. The tests are used for clinical purposes. Billing Codes Specimen Charges Stain Charges 85978 1 [id number] 1 3 2:48 PM CDT DERMATOPATHOLOGY LABORATORY Embedded Images 3 2:48 PM CDT DERMATOPATHOLOGY LABORATORY Pathology/Cytolog y TISSUE SPECIMEN FROM SKIN / Unknown 08/15/2023 08/16/2023 11:29 AM CDT Steve Maynard PA-C LAB - PATHOLOGY/CYTO LOGY ORDERABLES DERMATOPATHOLOGY LABORATORY [facility] - Department of Dermatology [address] [phone]
--- NOTE | 2024-12-20 14:21 | ECG_ITS ---
Test Date: 2024-12-20 14:28:02 Measurements Intervals [place] Rate: 74 P: 46 NM: 229 QRS: 38 QRSD: 104 T: 46 QT: 366 QTc: 407 Interpretive Statements SINUS RHYTHM WITH FIRST DEGREE AV BLOCK BASELINE ARTIFACT- I, II, AVR, AVL, V1, V3 BORDERLINE ECG Compared to ECG 04/08/2024 20:03:32 No significant changes Electronically Signed On 12-20-2024 14:35:33 INTERACTIVE WEB DEVELOPER by Sixto Miller D.O.
[2024-12-20 14:24] VITALS: BP 205/96; PULSE 78; RESP 16; TEMP 36.2; O2SAT 99
--- NOTE | 2024-12-20 14:38 | ED_ITS ---
HPI - Recheck/Abnormal Lab/Rx General Chief Complaint: Recheck/Abnormal Lab/Rx <Evelyn Aviles PA-C - Last Filed: 12/20/24 14:44> Stated Complaint: HTN <Evelyn Aviles PA-C - Last Filed: 12/20/24 14:44> Time Seen by Provider: 12/20/24 14:30 <Evelyn Aviles PA-C - Last Filed: 12/20/24 14:44> Focused HPI: Patient is a 69 y/o male who presents to the ED with c/o elevated BP. Patient reports he has had a SILVA all day today. Took Tylenol around 11am with some mild improvement. He then checked his blood pressure at home and noted it to be elevated to 180/110 range. He then prompted here for further evaluation. Patient does have history of hypertension. Is on doxazosin, irbesartan /HCTZ, metoprolol. Has been taking all his medications as directed. Denies missing any doses. States he has been seen in the ED here previously for high blood pressure and was prescribed p.r.n. hydralazine. He no longer takes this. He does not check his blood pressure regularly, but did check his blood pressure earlier this week and it was normal at that time. Patient does report persistent mild headache, some left-sided chest discomfort. Denies dizziness, lightheadedness, vision changes, shortness of breath. GENERAL: Elderly, well-nourished, and in no acute distress. HEAD: Normocephalic, atraumatic. CHEST: Clear to auscultation. ?No respiratory distress. HEART: Regular rate and rhythm.? NEURO: ?Alert and oriented x3. No focal deficits. PERRL/EOMI, conjunctiva clear Patient screened in triage and initial orders placed.? ?Additional care and disposition to be based upon?diagnostic testing and treatment. <MAKAYLA Narvaez Last Filed: 12/20/24 14:44> Focused HPI: Patient is a 69 y/o male who presents to the ED with c/o elevated BP. Patient reports he has had a SILVA all day today. Took Tylenol around 11am with some mild improvement. He then checked his blood pressure at home and noted it to be elevated to 180/110 range. He then prompted here for further evaluation. Patient does have history of hypertension. Is on doxazosin, irbesartan /HCTZ, metoprolol. Has been taking all his medications as directed. Denies missing any doses. States he has been seen in the ED here previously for high blood pressure and was prescribed p.r.n. hydralazine. He no longer takes this. He does not check his blood pressure regularly, but did check his blood pressure earlier this week and it was normal at that time. Patient does report persistent mild headache, some left-sided chest discomfort and only with palpation and reproducible in the single area of his ribcage. Denies dizziness, lightheadedness, vision changes, shortness of breath. GENERAL: Elderly, well-nourished, and in no acute distress. HEAD: Normocephalic, atraumatic. CHEST: Clear to auscultation. ?No respiratory distress. HEART: Regular rate and rhythm.? NEURO: ?Alert and oriented x3. No focal deficits. PERRL/EOMI, conjunctiva clear Patient screened in triage and initial orders placed.? ?Additional care and disposition to be based upon?diagnostic testing and treatment. <Chintan Worthington MD - Last Filed: 12/20/24 18:50> Source: patient <Evelyn Aviles PA-C - Last Filed: 12/20/24 14:44> Mode of arrival: ambulatory <Evelyn Aviles PA-C - Last Filed: 12/20/24 14:44> Limitations: no limitations <Evelyn Aviles PA-C - Last Filed: 12/20/24 14:44> History of Present Illness HPI narrative: Agree with the HPI above. Patient has presented similarly in the past most recently 6 months ago which was last time he saw his PCP. Has an appointment in 3 days time with his PCP. <Chintan Worthington MD - Last Filed: 12/20/24 18:50> Related Data Home Medications: Home Medications ?Medication ?Instructions ?Recorded ?Confirmed ?Last Taken ?Type mometasone 50 mcg/actuation nasal 1 spray intranasal DAILY 05/15/20 01/24/24 06/25/20 History spray ferrous sulfate 325 mg (65 mg 325 mg PO DAILY 12/28/23 01/24/24 Unknown History iron) capsule,extended release rosuvastatin 5 mg tablet 5 mg PO DAILY 12/28/23 01/24/24 Unknown History doxazosin 8 mg tablet 8 mg PO HS 01/24/24 01/24/24 Unknown History <Evelyn Aviles PA-C - Last Filed: 12/20/24 14:44> Allergies/Adverse Reactions: Allergies Allergy/AdvReac Type Severity Reaction Status Date / Time No Known Allergies Allergy Verified 12/20/24 14:19 <Evelyn Aviles PA-C - Last Filed: 12/20/24 14:44> Review of Systems 2 Review of Systems: As reviewed above in HPI. <Chintan Worthington MD - Last Filed: 12/20/24 18:50> [facility] Past Medical History Medical History: Medical History Small bowel polyp GERD (gastroesophageal reflux disease) Colon polyps Benign essential HTN Cleft palate Hypertension <Evelyn Aviles PA-C - Last Filed: 12/20/24 14:44> Surgical History Surgical History: Surgical History H/O left wrist surgery <Evelyn Aviles PA-C - Last Filed: 12/20/24 14:44> Family History Family History: Family History Mother Hypertension Cerebrovascular accident, Onset Age: 89 Father Family history of malignant neoplasm, Onset Age: 94 <Evelyn Aviles PA-C - Last Filed: 12/20/24 14:44> Social History Social History: Social History Social History: Smoking status: Never smoker Second hand tobacco smoke exposure: No Alcohol intake: current Alcohol use details: occasionally Substance use: never Substance use type: does not use Living arrangements: with family Occupation/Education: occupation Gender identity (if verbalized by the patient): Male Sexual Orientation (if Verbalized by the Patient): Straight or Heterosexual Spiritual care concerns: No <Evelyn Aviles PA-C - Last Filed: 12/20/24 14:44> Exam 2 Narrative: GENERAL: [Well-appearing, well-nourished, and in no acute distress.] HEAD: [Normocephalic, atraumatic.] EYES: [PERRLA and EOMI.] ENT: Nares clear, no rhinorrhea or epistaxis. Mucous membranes moist. NECK: Supple. CHEST: [Clear to auscultation. No respiratory distress.] Focal area of tenderness to palpation in the left-sided parasternal muscles without any overlying skin changes or step-offs, deformities. HEART: [Regular rate and rhythm]. No murmur heard. [Normal peripheral pulses.] ABDOMEN: [Soft, nondistended], [nontender], [No rigidity or guarding] EXTREMITIES: Normal range of motion. [No edema.] SKIN: Warm, dry, no rash. NEURO: [No focal deficits]. Alert and oriented [x3.] PSYCH: [Normal mood and affect.] <Chintan Worthington MD - Last Filed: 12/20/24 18:50> Course Vital Signs Vital signs: Vital Signs Temperature 36.2 C L 12/20/24 14:24 Pulse Rate 78 12/20/24 14:24 Respiratory Rate 16 12/20/24 14:24 Blood Pressure 205/96 H 12/20/24 14:24 Pulse Oximetry 99 12/20/24 14:24 Temperature 36.2 C L 12/20/24 14:24 Pulse Rate 67 12/20/24 16:32 Respiratory Rate 14 12/20/24 16:32 Blood Pressure 157/96 H 12/20/24 16:32 Pulse Oximetry 98 12/20/24 16:32 <Evelyn Aviles PA-C - Last Filed: 12/20/24 14:44> Vital Signs Temperature 36.2 C L 12/20/24 14:24 Pulse Rate 78 12/20/24 14:24 Respiratory Rate 16 12/20/24 14:24 Blood Pressure 205/96 H 12/20/24 14:24 Pulse Oximetry 99 12/20/24 14:24 Temperature 36.2 C L 12/20/24 14:24 Pulse Rate 67 12/20/24 16:32 Respiratory Rate 14 12/20/24 16:32 Blood Pressure 157/96 H 12/20/24 16:32 Pulse Oximetry 98 12/20/24 16:32 <Chintan Worthington MD - Last Filed: 12/20/24 18:50> MDM - Recheck/Abnormal Lab/Rx MDM Narrative Medical decision making narrative: MSE by FRANCHESCA in triage. <Evelyn Aviles PA-C - Last Filed: 12/20/24 14:44> MSE by FRANCHESCA in triage. 69-year-old male presenting to the emergency department for evaluation of hypertension as well as a headache that started this morning. He took Tylenol without any relief of his symptoms. He endorses left-sided chest discomfort only in very particular region of his chest without any overlying skin changes there is an area that is palpable and causing pain. Likely musculoskeletal or costochondritis. Patient describes his headache as bifrontal, dull without any throbbing. His blood pressure was elevated in triage but came down while he said in the room without any intervention. He took his morning medications and Tylenol. He is not unremarkable physical examination with normal neurological assessment, normal neurovascular assessment, 2+ pulses without any discrepancy. Warm extremities without any edema. No clinical evidence of hypertensive emergency however given his age and risk factors workup was ordered including a CT of the head, CBC, CMP, EKG, troponin level. Will treat patient's pain and re-evaluated is blood pressure. No indications presently for emergent blood pressure lowering. EKG is nonischemic. Differential diagnosis includes hypertensive emergency, asymptomatic hypertensive urgency, asymptomatic hypertension, less likely ACS, intracranial pathology such as a brain bleed or subarachnoid hemorrhage. Chest discomfort most likely musculoskeletal in nature given the clinical exam findings. Presently not endorsing any chest pain at rest or with movement. Only pain with palpation. Workup shows no leukocytosis or significant anemia worse than baseline. Normal platelet count. Negative troponin. Normal renal function, normal hepatic function. Normal coagulation panel. Normal glucose. Head CT shows no acute findings. Chest x-ray without any acute findings. EKG shows first-degree AV block, but no signs of acute ischemic changes. Patient was re-evaluated, had improvement his blood pressure without any interventions, 157/96 now. Provide him a migraine cocktail for his headache with improvement upon next re-evaluation. Given his asymptomatic hypertension, no signs of hypertensive urgency or emergency I believe he can be safely discharged with outpatient PCP follow-up for medication titration. He was encouraged to take his nightly dose of antihypertensives when he gets home and to keep his appointment on Monday with his PCP. Patient given return precautions and safe for discharge upon completion of his treatment. <Chintan Worthington MD - Last Filed: 12/20/24 18:50> Medical Records Attestation: I reviewed the patient's medical records. <Chintan Worthington MD - Last Filed: 12/20/24 18:50> Lab Data Attestation: I reviewed the patient's lab results. <Chintan Worthington MD - Last Filed: 12/20/24 18:50> Result diagrams: 12/20/24 14:44 12/20/24 14:44 <Evelyn Aviles PA-C - Last Filed: 12/20/24 14:44> Labs: Lab Results 12/20/24 Range/Units 14:44 WBC 7.9 (4.5-10.0) K/mm3 RBC 4.11 L (4.6-6.20) M/mm3 Hgb 13.2 L (14.0-18.0) g/dL Hct 37.7 L (42.0-52.0) % MCV 91.7 (80-100) fl MCH 32.1 (26-34) pg MCHC 35.0 (32-36) g/dl RDW 12.6 (11.5-14.5) % Plt Count 181 (150-375) k/mm3 MPV 8.9 (7.4-10.4) fl Immature Gran % (Auto) 0.5 (0-0.5) % Neut % (Auto) 59.6 (45.5-73.1) % Lymph % (Auto) 29.8 (18.3-44.2) % [place] % (Auto) 6.4 (2.6-8.5) % Eos % (Auto) 2.8 (0-4.4) % Baso % (Auto) 0.9 (0.2-1.2) % Lymph # (Auto) 2.36 (0.9-3.2) K/mm3 [place] # (Auto) 0.5 (0.1-0.6) K/mm3 Eos # (Auto) 0.2 (0-0.3) K/mm3 Baso # (Auto) 0.1 (0.0-0.1) K/mm3 Abs Immat Gran (auto) 0.04 H (0.00-0.031) K/mm3 Absolute Neuts (auto) 4.7 (1.3-6.7) K/mm3 Absolute Nucleated RBC 0.000 (0.0-0.012) K/mm3 Nucleated RBC % 0.0 (0.0-0.2) % PT 13.8 (11.1-14.7) Seconds INR 1.0 APTT 26.0 (22.3-36.8) Seconds Sodium 137 (137-145) mmol/L Potassium 3.7 (3.4-5.0) mmol/L Chloride 99 (98-107) mmol/L Carbon Dioxide 28 (22-30) mmol/L Anion Gap 10 (4-12) mmol/L BUN 18 (9-20) mg/dL Creatinine 0.92 (0.7-1.3) mg/dL Estim Creat Clear Calc 64 ml/min Estimated GFR > 60 (59 - ) Glucose 102 (65-110) mg/dL Calcium 10.3 H (8.4-10.2) mg/dL Total Bilirubin 0.7 (0.2-1.3) mg/dL AST 27 (17-59) U/L ALT 27 (6-50) U/L Alkaline Phosphatase 91 (38-126) U/L Troponin I < 0.012 (0.000-0.034) ng/mL Total Protein 8.0 (6.3-8.2) g/dL Albumin 4.4 (3.5-5.1) g/dL Lipase 80 (23-300) U/L <Evelyn Aviles PA-C - Last Filed: 12/20/24 14:44> Lab Results 12/20/24 Range/Units 14:44 WBC 7.9 (4.5-10.0) K/mm3 RBC 4.11 L (4.6-6.20) M/mm3 Hgb 13.2 L (14.0-18.0) g/dL Hct 37.7 L (42.0-52.0) % MCV 91.7 (80-100) fl MCH 32.1 (26-34) pg MCHC 35.0 (32-36) g/dl RDW 12.6 (11.5-14.5) % Plt Count 181 (150-375) k/mm3 MPV 8.9 (7.4-10.4) fl Immature Gran % (Auto) 0.5 (0-0.5) % Neut % (Auto) 59.6 (45.5-73.1) % Lymph % (Auto) 29.8 (18.3-44.2) % [place] % (Auto) 6.4 (2.6-8.5) % Eos % (Auto) 2.8 (0-4.4) % Baso % (Auto) 0.9 (0.2-1.2) % Lymph # (Auto) 2.36 (0.9-3.2) K/mm3 [place] # (Auto) 0.5 (0.1-0.6) K/mm3 Eos # (Auto) 0.2 (0-0.3) K/mm3 Baso # (Auto) 0.1 (0.0-0.1) K/mm3 Abs Immat Gran (auto) 0.04 H (0.00-0.031) K/mm3 Absolute Neuts (auto) 4.7 (1.3-6.7) K/mm3 Absolute Nucleated RBC 0.000 (0.0-0.012) K/mm3 Nucleated RBC % 0.0 (0.0-0.2) % PT 13.8 (11.1-14.7) Seconds INR 1.0 APTT 26.0 (22.3-36.8) Seconds Sodium 137 (137-145) mmol/L Potassium 3.7 (3.4-5.0) mmol/L Chloride 99 (98-107) mmol/L Carbon Dioxide 28 (22-30) mmol/L Anion Gap 10 (4-12) mmol/L BUN 18 (9-20) mg/dL Creatinine 0.92 (0.7-1.3) mg/dL Estim Creat Clear Calc 64 ml/min Estimated GFR > 60 (59 - ) Glucose 102 (65-110) mg/dL Calcium 10.3 H (8.4-10.2) mg/dL Total Bilirubin 0.7 (0.2-1.3) mg/dL AST 27 (17-59) U/L ALT 27 (6-50) U/L Alkaline Phosphatase 91 (38-126) U/L Troponin I < 0.012 (0.000-0.034) ng/mL Total Protein 8.0 (6.3-8.2) g/dL Albumin 4.4 (3.5-5.1) g/dL Lipase 80 (23-300) U/L <Chintan Worthington MD - Last Filed: 12/20/24 18:50> Imaging Data Attestation: I personally reviewed and interpreted this imaging study as follows: < Chintan Worthington MD - Last Filed: 12/20/24 18:50> My impression: Impressions Chest X-Ray 12/20/24 15:06 IMPRESSION: 1: NO ACUTE CARDIOPULMONARY DISEASE. Head CT 12/20/24 17:21 IMPRESSION: 1. Normal brain. <Chintan Worthington MD - Last Filed: 12/20/24 18:50> ECG Data EKG #1: Attestation: I personally reviewed and interpreted this ECG as follows: < Chintan Worthington MD - Last Filed: 12/20/24 18:50> ECG completion date: 12/20/24 <Chintan Worthington MD - Last Filed: 12/20/24 18:50> ECG completion time: 14:28 <Chintan Worthington MD - Last Filed: 12/20/24 18:50> Prior ECG tracings: available for review <Chintan Worthington MD - Last Filed: 12/20/24 18:50> Interpretation: Sinus rhythm, no ST segment elevations, depressions or inversions. Regular rate and rhythm and axis, no significant oval changes compared to prior EKG on my review. Overall interpretation sinus rhythm, first-degree AV block with a CO interval 229. <Chintan Worthington MD - Last Filed: 12/20/24 18:50> Discharge Plan Discharge Clinical Impression: Headache, Asymptomatic hypertension <MAKAYLA Narvaez Last Filed: 12/20/24 14:44> Patient Disposition: Home, Self-Care <MAKAYLA Narvaez Last Filed: 12/20/24 14:44> Condition: Stable <MAKAYLA Narvaez Last Filed: 12/20/24 14:44> Instructions: Antibiotic Form, Acute Headache (DC), Hypertension (ED) <MAKAYLA Narvaez Last Filed: 12/20/24 14:44> Additional Instructions: Your workup today shows reassuring findings, no signs of end-organ damage or any consequence of your hypertension. CT scan was reassuring. Follow-up with regular doctor about changing or taking different medications for blood pressure. Return with any new or worsening concerns. <Evelyn Aviles PA-C - Last Filed: 12/20/24 14:44> Patient Language: Serbian <MAKAYLA Narvaez Last Filed: 12/20/24 14:44> Prescriptions: No Action pantoprazole 40 mg tablet,delayed release (DR/EC) 40 mg PO QAM Qty: 90 1RF rosuvastatin 5 mg tablet 5 mg PO DAILY ferrous sulfate 325 mg (65 mg iron) capsule, extended release 325 mg PO DAILY mometasone 50 mcg/actuation spray,non-aerosol 1 spray INTRANASAL DAILY aspirin [Adult Low Dose Aspirin] 81 mg tablet,delayed release (DR/EC) 81 mg PO DAILY 30 Days Qty: 30 0RF doxazosin 8 mg tablet 8 mg PO HS hydralazine 10 mg tablet 10 mg PO TID PRN (Reason: blood pressure greater than 160) Qty: 20 0RF irbesartan-hydrochlorothiazide 150-12.5 mg tablet 1 tablet PO DAILY Qty: 90 1RF metoprolol succinate [Toprol XL] 100 mg tablet extended release 24 hr 100 mg PO DAILY Qty: 90 1RF <MAKAYLA Narvaez Last Filed: 12/20/24 14:44> Follow-up/Referrals: Cristal,DO Garret [Primary Care Provider] - <Evelyn Aviles PA-C - Last Filed: 12/20/24 14:44> Time of Disposition: 18:50 <Evelyn Aviles PA-C - Last Filed: 12/20/24 14:44> 18:50 <Chintan Worthington MD - Last Filed: 12/20/24 18:50>
[2024-12-20 14:52] LABS: Basophils Absolute Auto 0.1 K/mm3 (0.0-0.1); Basophils Percent Auto 0.9 % (0.2-1.2); Eosinophils Absolute Auto 0.2 K/mm3 (0-0.3); Eosinophils Percent Auto 2.8 % (0-4.4); Hematocrit 37.7 % (42.0-52.0); Hemoglobin 13.2 g/dL (14.0-18.0); Immature Granulocyte Absolute 0.04 K/mm3 (0.00-0.031); Immature Granulocyte Percent A 0.5 % (0-0.5); Lymphocytes Absolute Auto 2.36 K/mm3 (0.9-3.2); Lymphocytes Percent Auto 29.8 % (18.3-44.2); Mean Corpuscular Hemoglobin 32.1 pg (26-34); Mean Corpuscular Volume 91.7 fl (80-100); Mean Platelet Volume 8.9 fl (7.4-10.4); Monocytes Absolute Auto 0.5 K/mm3 (0.1-0.6); Monocytes Percent Auto 6.4 % (2.6-8.5); Neutrophils Absolute Auto 4.7 K/mm3 (1.3-6.7); Neutrophils Percent Auto 59.6 % (45.5-73.1); Platelet Count Result 181 k/mm3 (150-375); Red Blood Count 4.11 M/mm3 (4.6-6.20); Red Cell Distribution Width 12.6 % (11.5-14.5); White Blood Count 7.9 K/mm3 (4.5-10.0)
[2024-12-20 15:03] LABS: Alanine Aminotransferase 27 U/L (6-50); Albumin Level 4.4 g/dL (3.5-5.1); Alkaline Phosphatase 91 U/L (38-126); Anion Gap 10 mmol/L (4-12); Aspartate Amino Transferase 27 U/L (17-59); Bilirubin,Total 0.7 mg/dL (0.2-1.3); Blood Urea Nitrogen 18 mg/dL (9-20); Calcium 10.3 mg/dL (8.4-10.2); Carbon Dioxide 28 mmol/L (22-30); Chloride 99 mmol/L (98-107); Estimated CRCL calculation 64 ml/min; Estimated Glomerular Filt Rate > 60; Glucose 102 mg/dL (65-110); Lipase 80 U/L (23-300); Potassium 3.7 mmol/L (3.4-5.0); Sodium 137 mmol/L (137-145)
[2024-12-20 15:04] LABS: Prothrombin Time 13.8 Seconds (11.1-14.7)
[2024-12-20 15:12] LABS: Troponin I < 0.012 ng/mL (0.000-0.034)
--- OUTSIDE RECORDS SUMMARY | 2024-12-20 16:05 | XMS_ITS | Encounter Summary ---
Author Organization [facility] Address [address] [place] [address] Care Team Providers Care Process Manager Name Role Phone Garret Bee DO Primary Care Provider + Encounter Details Date Type Department Care Team (Late st Contact Info) Description 12/27/2022 [employer] Message Enc [facility] Family & Internal Medicine [facility] [address] [place] [phone] Garret Bee DO [address] [place], [place] [id number] rash and itch Social History Tobacco Use Types Packs/Day Years Used Date Smoking Tobacco: Never Smokeless Tobacco: Never Alcohol Use Standard Drinks/Week Comments Yes 1.7 (1 standard drink = 0.6 oz p ure alcohol) AUDIT-C Answer Date Recorded Q1: How often do you have a drink containing alc ohol? Monthly or less 06/30/2020 Q2: How many drinks containi ng alcohol do you have on a typical day when you are drinking? 1 or 2 06/30/2020 Q3: How often do you have si x or more drinks on one occasion? 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 No / Unsure 12/19/2022 11:06 AM IMAGE EDITOR documented as of this encounter Progress Notes * Aj Robertson MD - 12/27/2022 5:24 PM CST He can use Benadryl at night to see if it helped with itching. E EDITOR documented in this encounter Plan of Treatment Upcoming Encounters Date Type Department Care Team (Late st Contact Info) Description 12/25/2024 11:20 AM IMAGE EDITOR Office Visit [facility] Family & Internal Medicine - [address] [phone] Garret Bee DO [address] [place] [id number] documented as of this encounter Visit Diagnoses Not on filedocumented in this encounter Additional Health Concerns Assessment Noted Time PHQ-9 Depression Total Score: 0 06/07/20 21 2:11 PM CDT documented as of this encounter Care Teams Process Manager Relationship Specialty Start Date End Date Garret Bee DO [address] [place] [id number] PCP - General FAMILY PRACTICE 06/30/20 documented as of this encounter
--- OUTSIDE RECORDS SUMMARY | 2024-12-20 16:05 | XMS_ITS | Encounter Summary ---
Author Organization [facility] Address [address] [place] [address] Care Team Providers Care Fitness Attendant Name Role Phone Unavailable Primary Care Provider Unavailabl e Encounter Details Date Type Department Care Team (Late st Contact Info) Description 08/15/2023 Lab Requisition [facility] - DermPath Lab [address] [place] [address] Steve Maynard PA-C [address] [place] [address] Dermatitis, unspecified Social History Tobacco [...] AM CDT) Case Report Dermatopathology Report Case: [id number] Authorizing Provider: Steve Maynard PA-C Collected: 08/15/2023 12:00 AM Ordering Location: [facility] Derm[facility] Lab Received: 08/16/2023 11:29 AM Pathologist: [...] characteristic determined by the Dermatopathology Laboratory at [facility], directed by Dr. Chencho Ernst. These tests need not be, and therefore are not, approved by the [place] Food and Drug Administration. The tests are used for clinical purposes. Billing Codes Specimen Charges Stain Charges 34792 1 30263 1 3 2:48 PM CDT DERMATOPATHOLOGY LABORATORY Embedded Images 3 2:48 PM CDT DERMATOPATHOLOGY LABORATORY Pathology/Cytolog y TISSUE SPECIMEN FROM SKIN / Unknown 08/15/2023 08/16/2023 11:29 AM CDT Stvee Maynard PA-C LAB - PATHOLOGY/CYTO LOGY ORDERABLES DERMATOPATHOLOGY LABORATORY [facility] - Department of Dermatology [address] [place], [place] [id number] [place] [address] documented in this encounter Visit Diagnoses Diagnosis Dermatitis, unspecified documented in this encounter
--- OUTSIDE RECORDS SUMMARY | 2024-12-20 16:05 | XMS_ITS | Clinical Summary ---
Author Organization [facility] Address [address] [place] [id number] Care Team Providers Care Cooking Appliance Repair Technician Name Role Phone Juan Carloslauridarwincarlos Garret Rocha [...] CDT Respiratory Rate 20 01/01/2024 10:13 AM PRESS SETUP OPERATOR Oxygen Saturation - - Inhaled Oxygen Concentration - - Weight 97.1 kg (214 lb) 01/01/2024 10:13 AM PRESS SETUP OPERATOR Height 172.7 cm (5' 8 ) 01/01/2024 10:13 AM PRESS SETUP OPERATOR Body Mass Index 32.54 01/01/2024 10:13 AM PRESS SETUP OPERATOR Plan of Treatment Health Maintenance Due Date [...] [employer] CHOICE MEDICARE PPO BLUE ACCESS CHOICE [place] Care Teams Cooking Appliance Repair Technician Relationship Specialty Start Date End Date Garret Bee DO [address] [place] [id number] PCP - General Family Medicine 07/13/20
--- OUTSIDE RECORDS SUMMARY | 2024-12-20 16:05 | XMS_ITS | Referral Summary ---
Author Organization [facility] Address [address] [place] [address] Care Team Providers Care Associate Spa Director Name Role Phone Unavailable Primary Care Provider Unavailabl e Source Comments [facility],non-owned Affiliates and Associated Physician Practices is amultiple site organization consisting of ambulatory clinics and hospital sitesin [place], [place], [place] and [place]. This disclosure is being madepursuant to the Care Everywhere program and may not contain all information available regarding this patient. Last updated 18.[facility] [employer] Social History Tobacco Use Types Packs/Day Years Used Date Smoking Tobacco: Never Assessed Sex and Gender Information Value Date Recorded Sex Assigned at Not on file Gender Identity Not on file Sexual Orientation Not on file Plan of Treatment Not on file
--- OUTSIDE RECORDS SUMMARY | 2024-12-20 16:05 | XMS_ITS | Encounter Summary ---
Author Organization [facility] Address [address] [place] [address] Care Team Providers Care Hat Sprayer Name Role Phone Garret Bee DO Primary Care Provider + Encounter Details Date Type Department Care Team (Late st Contact Info) Description 08/29/2022 WebGen Systemst Message Enc [facility] Family & Internal Medicine [facility] [address] [place] [address] Garret Bee DO [address] [place], [place] [phone] prescription Social History Tobacco Use Types Packs/Day Years [...] occasion? 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 file Not on file documented as of this encounter Plan of Treatment Upcoming Encounters Date Type Department Care Team (Late st Contact Info) Description 12/25/2024 11:20 AM SQL SERVER ARCHITECT Office Visit [facility] Family & Internal Medicine - [address] [phone] Garret Bee DO [address] [place] [address] documented as of this encounter Visit Diagnoses Not on filedocumented in this encounter Additional Health Concerns Assessment Noted Time PHQ-9 Depression Total Score: 0 06/07/20 21 2:11 PM CDT documented as of this encounter Care Teams Hat Sprayer Relationship Specialty Start Date End Date Garret Bee DO [address] [place] [address] PCP - General FAMILY PRACTICE 06/30/20 documented as of this encounter
--- OUTSIDE RECORDS SUMMARY | 2024-12-20 16:05 | XMS_ITS | Encounter Summary ---
Author Organization [facility] Address [address] [place] [address] Care Team Providers Care Wharf Tender Helper Name Role Phone Garret Bee DO Primary Care Provider + Reason for Visit * Reason Onset Date Comments Hypertension 12/20/2024 Encounter Details Date Type Department Care Team (Late st Contact Info) Description 12/20/2024 Telephone [facility] Family & Internal Medicine [facility] [address] [place] [address] Garret Bee DO [address] [place] [address] Hypertension Social History Tobacco Use Types Packs/Day Years Used Date Smoking Tobacco: Never Passive Smoke Exposure: Never Smokeless Tobacco: Never Alcohol Use Standard Drinks/Week Comments Yes 0 (1 standard drink = 0.6 oz pure alcohol) average about 1 drink per month AUDIT-C Answer Date Recorded Q1: How often [...] Date Recorded Patient Health Questionnaire-2 Score 0 04/12/2024 Sex and Gender Information Value Date Recorded Sex Assigned at Not on file Legal Sex Male 2:33 PM CDT Gender Identity Not on file Sexual Orientation Not on file 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 Reviewed chart and medications with patient. Took night meds at 11PM last night and 8-9AM this morning. Spoke with Melina zamarripa who agrees with plan to go to [facility] PCP is not in office today. The patient is agreeable and will go to [facility] for eval. Patient has appt on Monday with PCP TRY INSEMINATOR documented in this encounter Plan of Treatment Upcoming Encounters Date Type Department Care Team (Late st Contact Info) Description 12/25/2024 11:20 AM POULTRY INSEMINATOR Office Visit [facility] Family & Internal Medicine - [phone] [place] [address] Garret Bee DO [address] [place] [address] documented as of this encounter Visit Diagnoses Not on filedocumented in this encounter Additional Health Concerns Assessment Noted Time PHQ-9 Depression Total Score: 0 06/07/20 21 2:11 PM CDT documented as of this encounter Care Teams Wharf Tender Helper Relationship Specialty Start Date End Date Garret Bee DO [address] [place] [address] PCP - General FAMILY PRACTICE 06/30/20 documented as of this encounter
--- OUTSIDE RECORDS SUMMARY | 2024-12-20 16:05 | XMS_ITS | Encounter Summary ---
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 No / Unsure 12/19/2022 11:06 AM ENTERTAINMENT REPORTER documented as of this encounter Plan of Treatment Upcoming Encounters Date Type Department Care Team (Late st Contact Info) Description 12/25/2024 11:20 AM ENTERTAINMENT REPORTER Office Visit [facility] Family & Internal Medicine - [address] [address] Garret Bee DO [address] [place] [address] documented as of this encounter Visit Diagnoses Not on filedocumented in this encounter Additional Health Concerns Assessment Noted Time PHQ-9 Depression Total Score: 0 06/07/20 21 2:11 PM CDT documented as of this encounter Care Teams Supervisor Briar Shop Relationship Specialty Start Date End Date Garret Bee DO [address] [place] [address] PCP - General FAMILY PRACTICE 06/30/20 documented as of this encounter
--- OUTSIDE RECORDS SUMMARY | 2024-12-20 16:05 | XMS_ITS | Clinical Summary ---
Author Organization [facility] Address [address] [place] [address] Care Team Providers Care Tube Machine Operator Helper Name Role Phone Unavailable Primary Care Provider Unavailabl e Source Comments [facility],non-owned Affiliates and Associated Physician Practices is amultiple site organization consisting of ambulatory clinics and hospital sitesin [place], [place], [place] and [place]. This disclosure is being madepursuant to the Care Everywhere program and may not contain all information available regarding this patient. Last updated 18.[facility] Cadee Social History Tobacco Use Types Packs/Day Years [...]
--- OUTSIDE RECORDS SUMMARY | 2024-12-20 16:05 | XMS_ITS | Patient Health Summary ---
Author Organization [facility] Address [address] [place] [address] Care Team Providers Care Spectral Scientist Name Role Phone Unavailable Primary Care Provider Unavailabl e Note from [facility],non-owned Affiliates and Associated Physician Practices is amultiple site organization consisting of ambulatory clinics and hospital sitesin [place], [place], [place] and [place]. This disclosure is being madepursuant to the Care Everywhere program and may not contain all information available regarding this patient. Last updated 18.[facility] Social History Tobacco Use Types Packs/Day Years Used Date Smoking Tobacco: Never Assessed Sex and Gender Information Value Date Recorded Sex Assigned at Not on file Gender Identity Not on file Sexual Orientation Not on file Procedures * DERMATOPATHOLOGY(Performed 08/15/2023) Performed for Dermatitis, unspecified Results * DERMATOPATHOLOGY (08/15/2023 12:00 AM CDT) Case Report Dermatopathology Report Case: [id number] Authorizing Provider: Steve Maynard PA-C Collected: 08/15/2023 12:00 AM Ordering Location: [facility] DermPath Lab Received: 08/16/2023 11:29 AM Pathologist: [...] determined by the Dermatopathology Laboratory at [facility], directed by Dr. Chencho Ernst. These tests need not be, and therefore are not, approved by the [place] Food and Drug Administration. The tests are used for clinical purposes. Billing Codes Specimen Charges Stain Charges 34246 1 39880 1 3 2:48 PM CDT DERMATOPATHOLOGY LABORATORY Embedded Images 3 2:48 PM CDT DERMATOPATHOLOGY LABORATORY Pathology/Cytolog y TISSUE SPECIMEN FROM SKIN / Unknown 08/15/2023 08/16/2023 11:29 AM CDT Steve Maynard PA-C LAB - PATHOLOGY/CYTO LOGY ORDERABLES DERMATOPATHOLOGY LABORATORY [facility] - Department of Dermatology [address], [address] [phone]
--- OUTSIDE RECORDS SUMMARY | 2024-12-20 16:05 | XMS_ITS | Referral Summary ---
Author Organization [facility] Address [address] [place] [phone] Care Team Providers Care Siding Coreboard Inspector Name Role Phone Juan Carloslauridarwincarlos Garret Rocha [...] CDT Respiratory Rate 20 01/01/2024 10:13 AM LAND ACQUISITION ANALYST Oxygen Saturation - - Inhaled Oxygen Concentration - - Weight 97.1 kg (214 lb) 01/01/2024 10:13 AM LAND ACQUISITION ANALYST Height 172.7 cm (5' 8 ) 01/01/2024 10:13 AM LAND ACQUISITION ANALYST Body Mass Index 32.54 01/01/2024 10:13 AM LAND ACQUISITION ANALYST Plan of Treatment Not on file Insurance [employer] MEDICARE PPO [place] Care Teams Siding Coreboard Inspector Relationship Specialty Start Date End Date Garret Bee DO [address] [place] [address] PCP - General Family Medicine 07/13/20
--- OUTSIDE RECORDS SUMMARY | 2024-12-20 16:05 | XMS_ITS | Encounter Summary ---
Author Organization [facility] Address [address] [place] [address] Care Team Providers Care Crane Assembler Name Role Phone Garret Bee DO Primary Care Provider + Reason for Visit * Reason Onset Date Comments Pre-visit Gap Closure 12/19/2024 Encounter Details Date Type Department Care Team (Late st Contact Info) Description 12/19/2024 Patient Outreach [facility] Medical Group Family & Internal Medicine [facility] [address] [place] [address] Garret Bee DO [address] [place], [place] [phone] Pre-visit Gap Closure Social History Tobacco Use Types Packs/Day Years [...] 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 Not on file Not on file documented as of this encounter Progress Notes * Elio Quiñonez - 12/19/2024 6:16 AM CST Preventive Screenings: Breast Cancer Screening: N/A Notes: Colorectal Cancer Screening: Up to Date Notes: Diabetic Eye Exam: N/A Notes: Falls Risk Screening: Needs Follow Up Notes: Tobacco Cessation: Needs Follow Up Notes: Labs: BMP/CMP: N/A Notes: Hemoglobin A1c: N/A Notes: Lipid: N/A Notes: Urine Albumin-Creatinine Ratio: N/A Notes: Immunizations: Influenza: Needs Follow Up Notes: Pneumococcal: Up to Date Notes: Shingles: Up to Date Notes: 3RD MATE documented in this encounter Plan of Treatment Upcoming Encounters Date Type Department Care Team (Late st Contact Info) Description 12/25/2024 11:20 AM 3RD MATE Office Visit [facility] Medical Group Family & Internal Medicine [address] [phone] Garret Bee DO [address] [place] [address] documented as of this encounter Visit Diagnoses Not on filedocumented in this encounter Additional Health Concerns Assessment Noted Time PHQ-9 Depression Total Score: 0 06/07/20 21 2:11 PM CDT documented as of this encounter Care Teams Crane Assembler Relationship Specialty Start Date End Date Garret Bee DO [address] [place] [address] PCP - General FAMILY PRACTICE 06/30/20 documented as of this encounter
--- OUTSIDE RECORDS SUMMARY | 2024-12-20 16:05 | XMS_ITS | Clinical Summary ---
Author Organization [facility] Address [facility] [place] [address] Care Team Providers Care Transportation Clerk Name Role Phone Garret Bee DO Primary Care Provider + Allergies No known active allergies Medications aspirin EC (ECOTRIN) 81 MG tabletIndications:E ssential hypertension,TIA (transient ischemic attack) Take 1 tablet (81 mg total) by mouth daily. 90 tablet 3 2 Active irbesartan-hydrochl orothiazide (AVALIDE) 150-12.5 MG TabIndications:Esse ntial hypertension,TIA (transient ischemic attack) Take 1 tablet by mouth 2 (two) times daily. 180 tablet 3 4 Active doxazosin (CARDURA) 8 MG tabletIndications:B enign prostatic hyperplasia with nocturia Take 1 tablet (8 mg total) by mouth nightly at bedtime. 90 tablet 3 4 Active metoprolol succinate ER (TOPROL-XL) 100 MG 24 hr tabletIndications:E ssential hypertension,TIA (transient ischemic attack) Take 1 tablet (100 mg total) by mouth daily. 90 tablet 3 4 Active rosuvastatin (CRESTOR) 5 MG tabletIndications:H yperlipidemia, unspecified hyperlipidemia type Take 1 tablet (5 mg total) by mouth nightly at bedtime. at bedtime. 90 tablet 3 4 Active pantoprazole EC (PROTONIX) 40 MG tabletIndications:G astroesophageal reflux disease, unspecified whether esophagitis present Take 1 tablet (40 mg total) by mouth daily. 90 tablet 3 4 Active Ferrous Sulfate (IRON) 325 (65 Fe) MG tablet Take 325 mg by mouth. 4 Active Active Problems Problem Noted Date Diagnosed Date Cleft palate and cleft lip (HHS/HCC) 05/19/2022 Deviated nasal septum 07/23/2020 BMI 32.0-32.9,adult 06/30/2020 Iron deficiency anemia, unsp ecified iron deficiency anemia type 06/30/2020 Essential hypertension 06/30/2020 TIA (transient ischemic attack) 06/30/2020 Nasal sinus polyp 06/30/2020 Chronic pansinusitis 06/30/2020 Gastroesophageal reflux dise ase, esophagitis presence not specified 06/30/2020 Encounters Date Type Department Care Team Description 12/20/2024 Telephone [facility] [address] [phone] Garret Bee, Hypertension 12/19/2024 Patient Outreach [facility] [address] [phone] Garret Bee, DO Pre-visit Gap Closure 10/25/2024 Scan HEALTH INFO SRVCS Scanned, Doc [facility] 10/04/2024 Scan MG HEALTH INFO SRVCS Scanned, Doc Med Group 09/20/2024 Scan MG HEALTH INFO SRVCS Scanned, Doc [facility] Group from Last 3 Months Immunizations Name Administration Dates Next Due Abrysvo Respiratory Syncytia l Virus (RSV) 0.5 mL, PF 07/10/2023 Fluad influenza vaccine, Markel drivalent (aIIV4), Inactivated, adjuvanted, preservative free, 0.5 mL,IM use 07/06/2022 Flulaval Quad (Multi-Dose Vial) 08/06/2018 Fluzone 6 Months+ Quad (0.5 mL Prefilled Syringe) 07/08/2020 Fluzone High Dose - >Age 65 (Prefilled Syringe) 07/31/2023 Influenza Adult (Generic) 07/06/2022,04/2021,07/06/2021,2019,07/08/2020,08/06/2019 [employer] ([employer]) COVID-19 AD26 VACCINE 0.5 ML IM SUSP 01/03/2021 PFIZER COVID-19 (12+) MRNA, LNP-S, PF, ROSA-SUCROSE, 30 MCG/0.3 ML (COMIRNATY) 07/31/2023 PFIZER COVID-19 (ORIGINAL FORMULATION, PURPLE CAP) mRNA, LNP-S, PF, 30 MCG/0.3 ML DOSE 08/22/2021 PFIZER COVID-19 BIVALENT (12 +) mRNA, LNP-S, PF, 30 MCG/0.3 ML DOSE 03/13/2023,07/06/2022 Pneumococcal (Prevnar 20) 03/13/2023 Shingrix 03/23/2022,07/06/2021 Tdap (Generic) 06/02/2022 Family History Medical History Relation Comments Cancer Father Diabetes Father type 2 Hypertension Mother Miscarriages / Stillbirths Mother Stroke Mother Relation Status Comments Father Mother Social History Tobacco Use Types Packs/Day Years Used Date Smoking Tobacco: Never Passive Smoke Exposure: Never Smokeless Tobacco: Never Tobacco Cessation:Counseling Given: Not Answered Alcohol Use Standard Drinks/Week Comments Yes 0 [...] 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 Not on file Last Filed Vital Signs Vital Sign Reading Time Taken Comments Blood Pressure 132/86 06/06/2024 9:28 AM CDT Pulse 89 06/06/2024 9:28 AM CDT Temperature 36.3 C (97.3 F) 06/06/2024 9:28 AM CDT Respiratory Rate 16 06/06/2024 9:28 AM CDT Oxygen Saturation 96% 06/06/2024 9:28 AM CDT Inhaled Oxygen Concentration - - Weight 110.4 kg (243 lb 4.8 oz) 06/06/2024 9:28 AM CDT Height 172.7 cm (5' 8 ) 06/06/2024 9:28 AM CDT Body Mass Index 36.99 06/06/2024 9:28 AM CDT Plan of Treatment Upcoming Encounters Date Type Department Care Team (Late st Contact Info) Description 12/25/2024 11:20 AM CARTON FORMING MACHINE HELPER Office Visit [facility] Medical Group Family & Internal Medicine [address] [phone] Garret Bee, [address] [place] [address] Health Maintenance Due Date Last Done Comments Annual Medicare Wellness Visit 2022 COVID-19 Vaccine ( season) 2024 07/31/2023, 03/13/2023, 07/06/2022, Additional history exists Influenza Adult (#1) 2024 07/31/2023, 07/06/2022, 07/06/2022, Additional history exists PHQ-2 (Physician [place]) 10/30/2024 04/12/2024 Colorectal Cancer Screening Colonoscopy (10 Years) 02/01/2029 02/02/2024, 06/26/2020 DTaP, Tdap and Td Vaccines (2 - Td or Tdap) 06/02/2032 06/02/2022 Zoster Vaccines Completed 03/23/2022, 07/06/2021 Hepatitis C Completed 10/14/2022 Pneumococcal Vaccine: 65+ Years Completed 03/13/2023 RSV Immunization or 60+ Years Completed 07/10/2023 Meningococcal B Vaccine Aged Out No l onger eligible based on patient's age to complete this topic Meningococcal Vaccine Aged Out No jean angel eligible based on patient's age to complete this topic RSV Immunizations Under 20 Months Aged Out No longer eligible based on patient's age to complete this topic Procedures Procedure Name Priority Date/Time Associated Diagnosis Comments COLONOSCOPY GENERIC (SCAN ORDER) 02/02/2024 HEPATITIS C ANTIBODY W/RFX TO HCV RNA Routine 10/14/2022 8:40 AM CARTON FORMING MACHINE HELPER from Last 3 Months or Most Recently Relevant to Health Maintenance Results * COLONOSCOPY GENERIC (SCAN ORDER) (02/02/2024) 02/02/2024 [facility] Scanned SCANNING Final Resu lt * HEPATITIS C ANTIBODY W/RFX TO HCV RNA (10/14/2022 8:40 AM CARTON FORMING MACHINE HELPER) HEPATITIS C AB NON-REACT FRANCHESCA NON-REACT FRANCHESCA [facility] SIGNAL TO CUTOFF <0.02 <1.00 [facility] Comment: HCV antibody was non-reactive. There is no laboratory evidence of HCV infection. In most cases, no further action is required. However, if recent HCV exposure is suspected, a test for HCV RNA (test code 04135) is suggested. For additional information please refer to http://education.PubGame/faq/NHI75c4 (This link is being provided for informational/ educational purposes only.) 10/14/2022 8:40 AM CARTON FORMING MACHINE HELPER 10/14/2022 8:44 AM CARTON FORMING MACHINE HELPER Narrative ELLIE HIGGINS ORDERS - 10/17/2022 4:39 PM CARTON FORMING MACHINE HELPER FASTING:YES FASTING: YES Resulting Agency Comment Performing Organization Information: Site ID: [place] Name: [facility] Address: [address] [place] [phone] Director: Luisito Naylor D.O., MPH us Garret Bee DO LABORATORY Final Re sult ELLIE NEWELL - RONALDO WISE [facility] [id number] [place] [address], from Last 3 Months or Most Recently Relevant to Health Maintenance Insurance [employer] Care Teams Transportation Clerk Relationship Specialty Start Date End Date Garret Bee DO [address] [place] [address] PCP - General FAMILY PRACTICE 06/30/20
--- OUTSIDE RECORDS SUMMARY | 2024-12-20 16:05 | XMS_ITS | Encounter Summary ---
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 Not on file documented as of this encounter Plan of Treatment Upcoming Encounters Date Type Department Care Team (Late st Contact Info) Description 12/25/2024 11:20 AM INFORMATION SYSTEMS SUPERVISOR Office Visit [facility] Medical Group Family & Internal Medicine - [address] [phone] Garret Bee DO [address] [place] [address] documented as of this encounter Visit Diagnoses Not on filedocumented in this encounter Additional Health Concerns Assessment Noted Time PHQ-9 Depression Total Score: 0 06/07/20 21 2:11 PM CDT documented as of this encounter Care Teams High School Academic Coach Relationship Specialty Start Date End Date Garret Bee DO [address] [place] [address] PCP - General FAMILY PRACTICE 06/30/20 documented as of this encounter
--- OUTSIDE RECORDS SUMMARY | 2024-12-20 16:06 | XMS_ITS | Encounter Summary ---
Author Organization [facility] Address [address] [place] [address] Care Team Providers Care Director Of Strategic Marketing Name Role Phone Garret Bee DO Primary Care Provider + Reason for Visit * Reason Onset Date Comments Lab Order 02/08/2024 Encounter Details Date Type Department Care Team (Late st Contact Info) Description 02/08/2024 Aristo Music Technologyt Message Enc [facility] Medical Group Family & Internal Medicine [facility] [address] [place] [phone] Garret Bee DO [address] [place] [address] blood work Social History Tobacco Use Types Packs/Day Years [...] 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 documented in this encounter Plan of Treatment Upcoming Encounters Date Type Department Care Team (Late st Contact Info) Description 12/25/2024 11:20 AM BAKERY ASSISTANT Office Visit [facility] Medical Group Family & Internal Medicine [facility] [address] [place] [address] Garret Bee DO [address] [place] [address] documented as of this encounter Visit Diagnoses Not on filedocumented in this encounter Additional Health Concerns Assessment Noted Time PHQ-9 Depression Total Score: 0 06/07/20 21 2:11 PM CDT documented as of this encounter Care Teams Director Of Strategic Marketing Relationship Specialty Start Date End Date Garret Bee DO [address] [place] [address] PCP - General FAMILY PRACTICE 06/30/20 documented as of this encounter
--- OUTSIDE RECORDS SUMMARY | 2024-12-20 16:06 | XMS_ITS | Encounter Summary ---
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 CTOR OF LABOR AND DELIVERY documented in this encounter Plan of Treatment Upcoming Encounters Date Type Department Care Team (Late st Contact Info) Description 12/25/2024 11:20 AM DIRECTOR OF LABOR AND DELIVERY Office Visit [facility] Family & Internal Medicine - [address] [phone] Garret Bee DO [address] [place] [address] documented as of this encounter Visit Diagnoses Not on filedocumented in this encounter Additional Health Concerns Assessment Noted Time PHQ-9 Depression Total Score: 0 06/07/20 21 2:11 PM CDT documented as of this encounter Care Teams Ice Cream Dispenser Relationship Specialty Start Date End Date Garret Bee DO [address] [place] [address] PCP - General FAMILY PRACTICE 06/30/20 documented as of this encounter
[2024-12-20 16:07] VITALS: BP 176/105; PULSE 103; RESP 17; O2SAT 98
[2024-12-20] MEDS: KETOROLAC 15 MG/ML VIAL (*BKC) IV PUSH (16:28)
[2024-12-20 16:32] VITALS: BP 157/96; PULSE 67; RESP 14; O2SAT 98
[2024-12-20] MEDS: SODIUM CHLORIDE 0.9% IV 1,000 ML 999 ML IV CONT (17:53)
[2024-12-20] MEDS: diphenhydrAMINE HCl INJ 50 MG/ML VIAL 25 MG IV PUSH (17:55)
[2024-12-20] MEDS: PROCHLORPERAZINE EDISYLATE 10 MG/2 ML VIAL IV PUSH (17:56)
[2024-12-20] MEDS: MAGNESIUM SULF 2 GM/WATER 50ML 2 GM/50 ML BAG IVPB (17:57)
[2024-12-20 18:00] VITALS: BP 166/91; PULSE 66; RESP 14; O2SAT 98
[2024-12-20 19:00] VITALS: BP 166/88; PULSE 63; RESP 13; O2SAT 97
[2024-12-20 20:09] VITALS: BP 162/98; PULSE 69; RESP 16; TEMP 36.2; O2SAT 98
== END 2024-12-20 20:10 | disposition home or self-care (01) ==
PROVIDERS: Emergency Medicine; Emergency Provider Student in an Organized Health Care Education/Training Program; PCP Student in an Organized Health Care Education/Training Program
DX: R51.9 Headache, unspecified (principal); I10 Essential (primary) hypertension; R07.89 Other chest pain; K21.9 Gastro-esophageal reflux disease without esophagitis; Z86.0100 Personal history of colon polyps, unspecified; I44.0 Atrioventricular block, first degree
CPT/HCPCS: 36415; 70450; 71046; 80053; 83690; 84484; 85025; 85610; 85730; 93005; 96365; 96366; 96375; 99284; A9270; J0780; J1200; J1885; J3475; J7030

== ENCOUNTER 2025-03-04 00:37 | Day surgery (SDC) | payer MEDICARE, SELFPAY ==
[2025-02-19 15:13] VITALS: BMI 37.3
--- OUTSIDE RECORDS SUMMARY | 2025-03-04 00:40 | XMS_ITS | Encounter Summary ---
Author Organization [facility] Address [address] [place] [address] Care Team Providers Care Slab Stripper Name Role Phone Garret Bee DO Primary Care Provider + Encounter Details Date Type Department Care Team (Late st Contact Info) Description 08/29/2022 Eleme Medicalt Message Enc [facility] Family & Internal Medicine [facility] [address] [place] [address] Garret Bee DO [address] [place], [place] [phone] prescription Social History Tobacco Use Types Packs/Day [...] Information Value Date Recorded Sex Assigned at Male 12/25/2024 11:14 AM PROPERTY SPECIALIST Legal Sex Male 2:33 PM CDT Gender Identity Male 12/25/2024 11:45 AM PROPERTY SPECIALIST Sexual Orientation Not on file 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 [address] [place] [address] 06/20/2025 11:00 AM CDT Telemedicine [facility] [phone] aGutam Hoyt MD Three [facility] [address] [place] [address] 06/24/2025 10:20 AM CDT Laboratory Only [facility] Family & Internal Medicine [address] [phone] [place] [address] [place] [address] 07/01/2025 11:20 AM CDT Office Visit [facility] Family & Internal [address] [phone] [place] [address] [place] [address] documented as of this encounter Visit Diagnoses Not on filedocumented in this encounter Additional Health Concerns Assessment Noted Time PHQ-9 Depression Total Score: 0 06/07/20 21 2:11 PM CDT documented as of this encounter Care Teams Slab Stripper Relationship Specialty Start Date End Date Garret Bee DO [address] [place] [address] PCP - General FAMILY PRACTICE 06/30/20 documented as of this encounter
--- OUTSIDE RECORDS SUMMARY | 2025-03-04 00:40 | XMS_ITS | Clinical Summary ---
Author Organization [facility] Address [address] [place] [address] Care Team Providers Care Transit Operator Name Role Phone Unavailable Primary Care Provider Unavailabl e Source Comments [facility],non-owned Affiliates and Associated Physician Practices is amultiple site organization consisting of ambulatory clinics and hospital sitesin [place], [place] and [place]. This disclosure is being madepursuant to the Care Everywhere program and may not contain all information available regarding this patient. Last updated 18.[facility] [email or web address] Social History Tobacco Use Types Packs/Day Years Used Date Smoking Tobacco: Never Assessed Sex and Gender Information Value Date Recorded Sex Assigned at Not on file Legal Sex Male 10:15 AM CDT Gender Identity Not on file Sexual [...] VACCINE ( - 2023-2 5 season) 2024 DEPRESSION SCREENING 10/30/2024 MEDICARE AWV CALENDAR YEAR 2024 INFLUENZA VACCINE (Season Ended) 2025 Respiratory Syncytial Virus (RSV) Vaccine Pt: or [...] to complete this topic MENINGOCOCCAL (Group B) VACC INE SHARED DECISION-MAKING Aged Out No longer eligibl e based on patient's age to complete this topic MENINGOCOCCAL GROUPS A/C/Y/W VACCINE Aged Out No longer eligible b ased on patient's age to complete this topic Insurance HUMANA MEDICARE ADV HMO & PPO HU[employer]NA SELF PAY NO INSURANCE Member Subscriber Plan / Payer (Ef fective for All Dates) Name:Choco Johnson Member ID:Not on file Relation to Subscriber:Not on file Name:CHOCO JOHNSON Subscriber ID:Not on file Address: [facility] [place] [address] Payer ID:Not on file Group ID:Not on file Type:Self Pay Address: [place] HU[employer] SELF PAY NO INSURANCE Member Subscriber Plan / Payer (Ef fective for All Dates) Name:Choco Johnson Member ID:Not on file Relation to Subscriber:Not on file Name:CHOCO JOHNSON Subscriber ID:Not on file Address: [address] [place] [address] Payer ID:Not on file Group ID:Not on file Type:Self Pay Address: [place] HU[place]NA SELF PAY NO INSURANCE Member Subscriber Plan / Payer (Ef fective for All Dates) Name:Choco Johnson Member ID:Not on file Relation to Subscriber:Not on file Name:CHOCO JOHNSON Subscriber ID:Not on file Address: [address] [place] [address] Payer ID:Not on file Group ID:Not on file Type:Self Pay Address: [place], [place]
--- OUTSIDE RECORDS SUMMARY | 2025-03-04 00:40 | XMS_ITS | Clinical Summary ---
Author Organization [facility] Address [address] [place] [address] Care Team Providers Care Material Manager Name Role Phone Garret Bee DO Primary Care Provider + Allergies No known active allergies Medications aspirin EC (ECOTRIN) 81 MG tabletIndications: Essential hypertension,TIA (transient ischemic attack) Take 1 tablet (81 mg total) by mouth daily. 90 tablet 3 2 Active Ferrous Sulfate (IRON) 325 (65 Fe) MG tablet Take 325 mg by mouth. 4 Active mometasone (NASONEX) 50 MCG/ACT nasal spray 2 sprays by Nasal route daily. 5 Active pantoprazole EC (PROTONIX) 40 MG tabletIndications: Gastroesophageal reflux disease, unspecified whether esophagitis present TAKE 1 TABLET EVERY DAY 90 tablet 3 5 Active doxazosin (CARDURA) 8 MG tabletIndications: Benign prostatic hyperplasia with nocturia TAKE 1 TABLET EVERY NIGHT AT BEDTIME 90 tablet 3 5 Active rosuvastatin (CRESTOR) 5 MG tabletIndications: Hyperlipidemia, unspecified hyperlipidemia type TAKE 1 TABLET EVERY NIGHT AT BEDTIME 90 tablet 3 5 Active irbesartan-hydroch lorothiazide (AVALIDE) 150-12.5 MG TabIndications:Ess ential hypertension,TIA (transient ischemic attack) TAKE 1 TABLET TWICE DAILY 180 tablet 3 5 Active spironolactone (ALDACTONE) 25 MG tabletIndications: Essential hypertension Take 1 tablet (25 mg total) by mouth daily. 30 tablet 6 5 Active metoprolol succinate ER (TOPROL-XL) 50 MG 24 hr tabletIndications: Essential hypertension,TIA (transient ischemic attack) Take 1 tablet (50 mg total) by mouth daily. 30 tablet 6 5 Active metoprolol succinate ER (TOPROL-XL) 100 MG 24 hr tabletIndications: Essential hypertension,TIA (transient ischemic attack) TAKE 1 TABLET EVERY DAY 90 tablet 3 5 02/22/20 25 Discontin ued(Sig Adjustmen t) Active Problems Problem Noted Date Diagnosed Date Cleft palate and cleft lip (HHS/HCC) 05/19/2022 Deviated nasal septum 07/23/2020 BMI 32.0-32.9,adult 06/30/2020 Iron deficiency anemia, unsp ecified iron deficiency anemia type 06/30/2020 Essential hypertension 06/30/2020 TIA (transient ischemic attack) 06/30/2020 Nasal sinus polyp 06/30/2020 Chronic pansinusitis 06/30/2020 Gastroesophageal reflux dise ase, esophagitis presence not specified 06/30/2020 Encounters Date Type Department Care Team Description 02/25/2025 Orders Only [facility], [address] [address] Gautam Hoyt MD 02/21/2025 9:15 AM CDT Office Visit [facility] [phone] Gautam Hoyt MD Hypertension (consult) 02/21/2025 Travel 12/25/2024 11:20 AM PEDODONTIST Office Visit [facility] Family & Internal Medicine - [address] [address] Garret Bee P, DO Hypertension (6 month follow up. The patient states he had a spike in B/P last week and went [facility] ) 12/25/2024 Travel 12/24/2024 Scan [employer] INFO SRVCS Scanned, Doc Med Group 12/20/2024 Scan [facility], [address] [address] Scanned, Doc Pccl 12/20/2024 Scan [employer] INFO SRVCS Scanned, Doc Med Group Lab (SCAN); Image (SCAN); CT (SCAN) 12/20/2024 Telephone [facility] Family & Internal [address] [phone] Garret Bee, Hypertension 12/19/2024 Patient Outreach [facility] Internal [address] [phone] Garret Bee, DO Pre-visit Gap Closure from Last 3 Months Immunizations Immunization Administration Dates Next Due Abrysvo Respiratory Syncytia l Virus (RSV) 0.5 mL, PF 07/10/2023 Fluad influenza vaccine, Markel drivalent (aIIV4), Inactivated, adjuvanted, preservative free, 0.5 mL,IM use 07/06/2022 Flulaval Quad (Multi-Dose Vial) 08/06/2018 Fluzone 6 Months+ Quad (0.5 mL Prefilled Syringe) 07/08/2020 Fluzone High Dose - >Age 65 (Prefilled Syringe) 07/31/2023 Influenza Adult (Generic) 07/06/2022,04/2021,07/06/2021,2019,07/08/2020,08/06/2019 [facility] ([facility]U [employer] YU) COVID-19 AD26 VACCINE 0.5 ML IM SUSP [...] standard drink = 0.6 oz pure alcohol) Currently less than one drink per month. 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 Not on file Last Filed Vital Signs Vital Sign Reading Time Taken Comments Blood Pressure 164/98 02/21/2025 9:12 AM CDT Pulse 80 02/21/2025 9:12 AM CDT Temperature 36.8 C (98.3 F) 12/25/2024 11:45 AM PEDODONTIST Respiratory Rate 16 12/25/2024 11:45 AM PEDODONTIST Oxygen Saturation 98% 02/21/2025 9:12 AM CDT Inhaled Oxygen Concentration - - Weight 114.1 kg (251 lb 8 oz) 02/21/2025 9:12 AM CDT Height 172.7 cm (5' 8 ) 02/21/2025 9:12 AM CDT Body Mass Index 38.24 02/21/2025 9:12 AM CDT Plan of Treatment Upcoming Encounters Date Type Department Care Team (Late st Contact Info) Description 03/10/2025 10:[address] [facility] [place] [address] Gautam Hoyt MD Three [facility] [address] [place] [address] 06/20/2025 11:00 AM CDT [facility]-[address] [phone] Gautam Hoyt MD Three [facility] [address] [place] [address] 06/24/2025 10:20 AM CDT Laboratory Only [facility] Family & Internal [address] [phone] Garret Bee DO [address] [place] [address] 07/01/2025 11:20 AM CDT Office Visit [facility] Family & Internal [address] [phone] Garret Bee DO [address] [place] [address] Health Maintenance Due Date Last Done Comments Annual Medicare Wellness Visit 2022 COVID-19 Vaccine ( season) 2024 07/31/2023, 03/13/2023, 07/06/2022, Additional history exists Colorectal Cancer Screening Colonoscopy (10 Years) 02/01/2029 02/02/2024, 06/26/2020 DTaP, Tdap and Td Vaccines (2 - Td or Tdap) 06/02/2032 06/02/2022 Zoster Vaccines Completed 03/23/2022, 07/06/2021 Hepatitis C Completed 10/14/2022 Pneumococcal Vaccine: 50+ Years Completed 03/13/2023 RSV Immunization or 60+ Years Completed 07/10/2023 PHQ-2 (Physician [place]) Completed 12/25/2024 Meningococcal B Vaccine Aged Out No l onger eligible based on patient's age to complete this topic Meningococcal Vaccine Aged Out No jean angel eligible based on patient's age to complete this topic RSV Immunizations Under 20 Months Aged Out No longer eligible based on patient's age to complete this topic Procedures Procedure Name Priority Date/Time Associated Diagnosis Comments CT GENERIC 12/20/2024 ECG GENERIC (SCAN ORDER) Routine 12/20/2024 OUTSIDE LAB (SCAN ORDER) 12/20/2024 OUTSIDE PT/INR (SCAN ORDER) 12/20/2024 IMAGE GENERIC 12/20/2024 COLONOSCOPY GENERIC (SCAN ORDER) 02/02/2024 HEPATITIS C ANTIBODY W/RFX TO HCV RNA Routine 10/14/2022 8:40 AM PEDODONTIST from Last 3 Months or Most Recently Relevant to Health Maintenance Results * CT GENERIC (12/20/2024) Anatomical Region Laterality Modality Other 12/20/2024 us [facility] Scanned SCANNING Final Resu lt * ECG (12/20/2024) [employer] [facility] Scanned SCANNING Final Result [facility] * OUTSIDE PT/INR (SCAN ORDER) (12/20/2024) 12/20/2024 [facility] Scanned SCANNING Final Resu lt * OUTSIDE LAB (SCAN ORDER) (12/20/2024) 12/20/2024 [facility] Scanned SCANNING Final Resu lt * IMAGE GENERIC (12/20/2024) Anatomical Region Laterality Modality Other 12/20/2024 [facility] Scanned SCANNING Final Resu lt * COLONOSCOPY GENERIC (SCAN ORDER) (02/02/2024) 02/02/2024 [facility] Scanned SCANNING Final Resu lt * HEPATITIS C ANTIBODY W/RFX TO HCV RNA (10/14/2022 8:40 AM PEDODONTIST) HEPATITIS C AB NON-REACT FRANCHESCA NON-REACT FRANCHESCA [facility] SIGNAL TO CUTOFF <0.02 <1.00 [facility] Comment: HCV antibody was non-reactive. There is no laboratory evidence of HCV infection. In most cases, no further action is required. However, if recent HCV exposure is suspected, a test for HCV RNA (test code 95028) is suggested. For additional information please refer to http://education.SpeakGlobal/faq/UQT39k8 (This link is being provided for informational/ educational purposes only.) 10/14/2022 8:40 AM PEDODONTIST 10/14/2022 8:44 AM PEDODONTIST Narrative [facility] - 10/17/2022 4:39 PM PEDODONTIST FASTING:YES FASTING: YES Resulting Agency Comment Performing Organization Information: Site ID: [place] Name: [facility] Address: [id number] [place] [id number] Director: Luisito Naylor D.O., MPH Garret Bee DO LABORATORY Final Re sult [facility] [id number] [place] [address] from Last 3 Months or Most Recently Relevant to Health Maintenance Insurance HUMAN Care Teams Material Manager Relationship Specialty Start Date End Date Garret Bee DO [facility] [place] [address] PCP - General FAMILY PRACTICE 06/30/20
--- OUTSIDE RECORDS SUMMARY | 2025-03-04 00:40 | XMS_ITS | Encounter Summary ---
Author Organization [facility] Address [address] [place] [address] Care Team Providers Care Roller Engraver Name Role Phone Garret Bee DO Primary Care Provider + Encounter Details Date Type Department Care Team (Late st Contact Info) Description 01/02/2023 BiolineRxt Message Enc [facility] Medical Group Family & Internal Medicine [facility] [address] [place] [address] Garret Bee DO [address] [place], [place] [phone] [employer] Social History Tobacco Use Types Packs/Day [...] Sex Assigned at Male 12/25/2024 11:14 AM SUPERINTENDENT LOCAL Legal Sex Male 2:33 PM CDT Gender Identity Male 12/25/2024 11:45 AM SUPERINTENDENT LOCAL Sexual Orientation Not on file 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 No / Unsure 12/19/2022 11:06 AM SUPERINTENDENT LOCAL documented as of this encounter Plan of Treatment Upcoming Encounters Date Type Department Care Team (Late st Contact Info) Description 03/10/2025 10:00 AM CDT Appointment [facility] [place] [address] Gautam Hoyt MD Three [facility] [address] [place] [address] 06/20/2025 11:00 AM CDT Telemedicine [facility] [phone] Gautam Hoyt MD Three [facility] [address] [place] [address] 06/24/2025 10:20 AM CDT Laboratory Only [facility] Family & Internal Medicine [address] [address] [place] [address] [place] [address] 07/01/2025 11:20 AM CDT Office Visit [facility] Medical [facility] Family & Internal Medicine [address] [address] [place] [address] [place] [address] documented as of this encounter Visit Diagnoses Not on filedocumented in this encounter Additional Health Concerns Assessment Noted Time PHQ-9 Depression Total Score: 0 06/07/20 21 2:11 PM CDT documented as of this encounter Care Teams Roller Engraver Relationship Specialty Start Date End Date Garret Bee DO [address] [place] [address] PCP - General FAMILY PRACTICE 06/30/20 documented as of this encounter
--- OUTSIDE RECORDS SUMMARY | 2025-03-04 00:40 | XMS_ITS | Encounter Summary ---
Author Organization [facility] Address [address] [place] [address] Care Team Providers Care Truck Hop Name Role Phone Garret Bee DO Primary Care Provider + Reason for Visit * Reason Onset Date Comments Lab Order 02/08/2024 Encounter Details Date Type Department Care Team (Late st Contact Info) Description 02/08/2024 Soundtrackert Message Enc [facility] Family & Internal Medicine [facility] [address] [place] [address] Garret Bee DO [address] [place] [address] blood work Social History Tobacco [...] Sex Assigned at Male 12/25/2024 11:14 AM MANAGER INVESTIGATIONS Legal Sex Male 2:33 PM CDT Gender Identity Male 12/25/2024 11:45 AM MANAGER INVESTIGATIONS Sexual Orientation Not on file 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 [...] Info) Description 03/10/2025 10:00 AM CDT Appointment [facility] [place] [address] Gautam Hoyt MD Three [facility] [address] [place] [address] 06/20/2025 11:00 AM CDT Telemedicine [facility] [phone] Gautam Hoyt MD Three [facility] [address] [place] [address] 06/24/2025 10:20 AM CDT Laboratory Only [facility] Family & Internal Medicine [address] [phone] Garret Bee, DO [address] [place] [address] 07/01/2025 11:20 AM CDT Office Visit [facility] Family & Internal Medicine [address] [phone] Garret Bee, DO [address] [place] [address] documented as of this encounter Visit Diagnoses Not on filedocumented in this encounter Additional Health Concerns Assessment Noted Time PHQ-9 Depression Total Score: 0 06/07/20 21 2:11 PM CDT documented as of this encounter Care Teams Truck Hop Relationship Specialty Start Date End Date Garret Bee DO [address] [place] [address] PCP - General FAMILY PRACTICE 06/30/20 documented as of this encounter
--- OUTSIDE RECORDS SUMMARY | 2025-03-04 00:40 | XMS_ITS | Encounter Summary ---
Author Organization [facility] Address [address] [place] [address] Care Team Providers Care Machine Stonecutter Name Role Phone Garret Bee DO Primary Care Provider + Encounter Details Date Type Department Care Team (Late st Contact Info) Description 07/21/2023 Glide Pharmat Message Enc [facility] Family & Internal Medicine [facility] [address] [place] [phone] Garret Bee DO [address] [place], [place] [phone] fasting v nonfasting Social History Tobacco Use [...] Sex Assigned at Male 12/25/2024 11:14 AM SOCIETY REPORTER Legal Sex Male 2:33 PM CDT Gender Identity Male 12/25/2024 11:45 AM SOCIETY REPORTER Sexual Orientation Not on file 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 Not on file documented as of this encounter Plan of Treatment Upcoming Encounters Date Type Department Care Team (Late st Contact Info) Description 03/10/2025 10:00 AM CDT Appointment [facility] [place] [address] Gautam Hoyt MD Three [facility] [address] [place] [address] 06/20/2025 11:00 AM CDT Telemedicine [facility] [phone] Gautam Hoyt MD Three [facility] [address] [place] [address] 06/24/2025 10:20 AM CDT Laboratory Only [facility] Family & Internal Medicine [address] [phone] Garret Bee DO [address] [place] [address] 07/01/2025 11:20 AM CDT Office Visit [facility] Family & Internal [facility] [address] [place] [phone] [place] [address] [place] [address] documented as of this encounter Visit Diagnoses Not on filedocumented in this encounter Additional Health Concerns Assessment Noted Time PHQ-9 Depression Total Score: 0 06/07/20 21 2:11 PM CDT documented as of this encounter Care Teams Machine Stonecutter Relationship Specialty Start Date End Date Garret Bee DO [address] [place] [address] PCP - General FAMILY PRACTICE 06/30/20 documented as of this encounter
--- OUTSIDE RECORDS SUMMARY | 2025-03-04 00:40 | XMS_ITS | Referral Summary ---
Author Organization [facility] Address [address] [place] [phone] Care Team Providers Care Content Manager Name Role Phone Juan Carloslaurioscar Garret Rocha DO Primary Care Provide r [...] CDT Respiratory Rate 20 01/01/2024 10:13 AM PLISSE MACHINE OPERATOR HELPER Oxygen Saturation - - Inhaled Oxygen Concentration - - Weight 97.1 kg (214 lb) 01/01/2024 10:13 AM PLISSE MACHINE OPERATOR HELPER Height 172.7 cm (5' 8 ) 01/01/2024 10:13 AM PLISSE MACHINE OPERATOR HELPER Body Mass Index 32.54 01/01/2024 10:13 AM PLISSE MACHINE OPERATOR HELPER Plan of Treatment Not on file Insurance [employer] MEDICARE PPO [place] Care Teams Content Manager Relationship Specialty Start Date End Date Garret Bee DO [address] [place] [phone] PCP - General Family Medicine 07/13/20
--- OUTSIDE RECORDS SUMMARY | 2025-03-04 00:40 | XMS_ITS | Encounter Summary ---
Author Organization [facility] Address [address] [place] [address] Care Team Providers Care Sales Intern Name Role Phone Garret Bee DO Primary Care Provider + Encounter Details Date Type Department Care Team (Late st Contact Info) Description 12/27/[address] 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 No / Unsure 12/19/2022 11:06 AM TUTORING CLINICIAN documented as of this encounter Progress Notes * Aj Robertson MD - 12/27/2022 5:24 PM CST He can use Benadryl at night to see if it helped with itching. RING CLINICIAN documented in this encounter Plan of Treatment Upcoming Encounters Date Type Department Care Team (Late st Contact Info) Description 03/10/2025 10:00 AM CDT Appointment [facility] [place] [address] Gautam Hoyt MD Three [facility] [address] [place] [address] 06/20/2025 11:00 AM CDT Telemedicine [facility] [phone] Gautam Hoyt MD Three [facility] [address] [place] [address] 06/24/2025 10:20 AM CDT Laboratory Only [facility] Family & Internal [address] [phone] Garret Bee DO [address] [place] [address] 07/01/2025 11:20 AM CDT Office Visit [facility] Family & Internal [address] [phone] Garret Bee DO [address] [place] [address] documented as of this encounter Visit Diagnoses Not on filedocumented in this encounter Additional Health Concerns Assessment Noted Time PHQ-9 Depression Total Score: 0 06/07/20 21 2:11 PM CDT documented as of this encounter Care Teams Sales Intern Relationship Specialty Start Date End Date Garret Bee DO [address] [place] [phone] PCP - General FAMILY PRACTICE 06/30/20 documented as of this encounter
--- OUTSIDE RECORDS SUMMARY | 2025-03-04 00:40 | XMS_ITS | Encounter Summary ---
Author Organization [facility] Address [address] [place] [address] Care Team Providers Care Gas Distribution And Emergency Clerk Name Role Phone Garret Bee DO Primary Care Provider + Encounter Details Date Type Department Care Team (Late st Contact Info) Description 09/28/2023 TestPlantt Message Enc [facility] Family & Internal Medicine [facility] [address] [place] [phone] Garret Bee DO [address] [place], [place] [phone] colonoscopy Social History Tobacco Use Types Packs/Day [...] Sex Assigned at Male 12/25/2024 11:14 AM ROOM SERVICE SUPERVISOR Legal Sex Male 2:33 PM CDT Gender Identity Male 12/25/2024 11:45 AM ROOM SERVICE SUPERVISOR Sexual Orientation Not on file 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 SERVICE SUPERVISOR documented in this encounter Plan of Treatment Upcoming Encounters Date Type Department Care Team (Late st Contact Info) Description 03/10/2025 10:00 AM CDT Appointment [facility] [place] [address] Gautam Hoyt MD Three [facility] [address] [place] [address] 06/20/2025 11:00 AM CDT Telemedicine [facility] [phone] Gautam Hoyt MD Three [facility] [address] [place] [address] 06/24/2025 10:20 AM CDT Laboratory Only [facility] Family & Internal Medicine [address] [phone] [place] [address] [place] [address] 07/01/2025 11:20 AM CDT Office Visit [facility] Family & Internal [address] [phone] Garret Bee DO [address] [place] [address] documented as of this encounter Visit Diagnoses Not on filedocumented in this encounter Additional Health Concerns Assessment Noted Time PHQ-9 Depression Total Score: 0 06/07/20 21 2:11 PM CDT documented as of this encounter Care Teams Gas Distribution And Emergency Clerk Relationship Specialty Start Date End Date Garret Bee DO [address] [place] [address] PCP - General FAMILY PRACTICE 06/30/20 documented as of this encounter
--- OUTSIDE RECORDS SUMMARY | 2025-03-04 00:40 | XMS_ITS | Clinical Summary ---
Author Organization [facility] Address [address] [place] [phone] Care Team Providers Care Cooker Operator Name Role Phone Juan Carloslauridarwincarlos Garret Rocha [...] CDT Respiratory Rate 20 01/01/2024 10:13 AM EDGE TRIMMING MACHINE OPERATOR Oxygen Saturation - - Inhaled Oxygen Concentration - - Weight 97.1 kg (214 lb) 01/01/2024 10:13 AM EDGE TRIMMING MACHINE OPERATOR Height 172.7 cm (5' 8 ) 01/01/2024 10:13 AM EDGE TRIMMING MACHINE OPERATOR Body Mass Index 32.54 01/01/2024 10:13 AM EDGE TRIMMING MACHINE OPERATOR Plan of Treatment Health Maintenance Due Date Last Done Comments Colon Cancer Screening-Colonoscopy 1957 Depression Screening 1957 Fall Risk Assessment 1957 Hepatitis C Screening 1957 Prostate Cancer Screening-PSA 1957 Hepatitis B Screening 1975 Pneumococcal vaccine 65+ (1 of 1 - PCV) 2007 Abdominal Aortic Aneurysm (A AA) Screen 2022 Well Visit 65+ 2022 Covid-19 Vaccine (3 - 2023-2 5 season) 2024 08/22/2021, 01/03/2021 Influenza Vaccine (Season Ended) 2025 07/06/2022, 07/06/2021, 07/30/2020, Additional history exists DTaP/Tdap/Td Vaccine (2 - Td or Tdap) 06/02/2032 06/02/2022 Zoster Vaccine Completed 03/23/2022, 07/06/2021 Insurance [employer] CHOICE MEDICARE PPO BLUE ACCESS CHOICE [place] Care Teams Cooker Operator Relationship Specialty Start Date End Date Garret Bee DO [address] [place] [phone] PCP - General Family Medicine 07/13/20
--- OUTSIDE RECORDS SUMMARY | 2025-03-04 00:40 | XMS_ITS | Encounter Summary ---
Author Organization [facility] Address [address] [facility] [place] [address] Care Team Providers Care On Site Nurse Name Role Phone Unavailable Primary Care Provider Unavailabl e Encounter Details Date Type Department Care Team (Late st Contact Info) Description 08/15/2023 Lab Requisition [facility] D[facility] Lab [address] [place] [address] Steve Maynard PA-C [address] [place] [address] Dermatitis, unspecified Social History Tobacco [...] AM CDT) Case Report Dermatopathology Report Case: [id number] Authorizing Provider: Steve Maynard PA-C Collected: 08/15/2023 12:00 AM Ordering Location: [facility] DermPath Lab Received: 08/16/2023 11:29 AM Pathologist: Erlinda Carcamo MD Specimen: Skin, right anterior proximal upper arm 2:48 PM CDT DERMATOPATHOLOGY LABORATORY Final Diagnosis [...] characteristic determined by the Dermatopathology Laboratory at [facility], directed by Dr. Chencho Ernst. These tests need not be, and therefore are not, approved by the [place] Food and Drug Administration. The tests are used for clinical purposes. Billing Codes Specimen Charges Stain Charges 23478 1 36622 1 3 2:48 PM CDT DERMATOPATHOLOGY LABORATORY Embedded Images 3 2:48 PM CDT DERMATOPATHOLOGY LABORATORY Pathology/Cytolog y TISSUE SPECIMEN FROM SKIN / Unknown 08/15/2023 08/16/2023 11:29 AM CDT Steve Maynard PA-C LAB - PATHOLOGY/CYTOLOGY RONNI MARINELLI Final Result DERMATOPATHOLOGY LABORATORY [facility] - Department of Dermatology [facility] Specialized Medicine [facility], 3rd Floor [address] [phone] documented in this encounter Visit Diagnoses Diagnosis Dermatitis, unspecified documented in this encounter
[2025-03-04 08:06] VITALS: BP 186/95; PULSE 72; RESP 20; TEMP 36.2; O2SAT 98
[2025-03-04] MEDS: LACTATED RINGERS 1,000 ML 150 ML IV CONT (08:17)
--- NOTE | 2025-03-04 08:36 | WPDANESEPPF ---
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 Patient Data Age: 69 Gender: M Height: 1.73 m Weight: 114.3 kg Last Vital Signs Temp 97.2 F L 03/04/25 08:06 Pulse 72 03/04/25 08:06 Resp 20 03/04/25 08:06 BP 186/95 H 03/04/25 08:06 Pulse Ox 98 03/04/25 08:06 O2 Del Method Room Air 03/04/25 08:06 Allergies Allergy/AdvReac Type Severity Reaction Status Date / Time No Known Allergies Allergy Verified 03/04/25 08:05 Home Medications ?Medication ?Instructions ?Recorded ?Confirmed ?Type aspirin 81 mg tablet,delayed 81 mg PO DAILY 30 days #30 tabs 05/15/20 03/04/25 Rx release (Adult Low Dose Aspirin) mometasone 50 mcg/actuation nasal 1 spray intranasal DAILY 05/15/20 03/04/25 History spray pantoprazole 40 mg tablet,delayed 40 mg PO QAM #90 tabs 05/21/20 03/04/25 Rx release irbesartan 150 1 tablet PO DAILY #90 tabs 05/26/20 03/04/25 Rx mg-hydrochlorothiazide 12.5 mg tablet metoprolol succinate 100 mg 100 mg PO DAILY #90 tabs 05/26/20 03/04/25 Rx tablet,extended release 24 hr (Toprol XL) ferrous sulfate 325 mg (65 mg 325 mg PO DAILY 12/28/23 03/04/25 History iron) capsule,extended release rosuvastatin 5 mg tablet 5 mg PO DAILY 12/28/23 03/04/25 History doxazosin 8 mg tablet 8 mg PO HS 01/24/24 03/04/25 History hydralazine 10 mg tablet 10 mg PO TID PRN blood pressure 04/08/24 03/04/25 Rx greater than 160 #20 tabs Patient hx anesthesia problems: none Family hx anesthesia problems: none Results Review: All pre-operative results and documents have been reviewed as part of the pre-operative evaluation. [facility] Past Medical History Medical History Small bowel polyp GERD (gastroesophageal reflux disease) Colon polyps Benign essential HTN Cleft palate Hypertension Surgical History Surgical History H/O left wrist surgery Family History Family History Mother Hypertension Cerebrovascular accident, Onset Age: 89 Father Family history of malignant neoplasm, Onset Age: 94 Social History Social History Social History: Smoking status: Never smoker Second hand tobacco smoke exposure: No Alcohol intake: current Alcohol use details: Rarely have a beer Substance use: never Substance use type: does not use Living arrangements: with family Occupation/Education: occupation Gender identity (if verbalized by the patient): Male Sexual Orientation (if Verbalized by the Patient): Straight or Heterosexual Spiritual care concerns: No Anes - Eval Final PreProcedure Day of Procedure 03/04/25 08:36 Patient weight: obese Heart: regular rate and rhythm Lungs: clear to auscultation Airway: Mallampati scale class III Neurological: alert and oriented Last oral intake: >/= 8 hours ASA classification: III Emergent: no Anesthetic plan: proceed Anesthesia type and monitoring: general GIVS and standard monitoring Results Review: All pre-operative results and documents have been reviewed as part of the pre-operative evaluation. Informed Consent: The patient's anesthetic plan and its attendant risks and benefits were discussed with the patient/family/POA. Questions were solicited and answers provided to the satisfaction of the patient/family/POA.
--- NOTE | 2025-03-04 08:48 | PM.HPGS ---
History of Present Illness History of Present Illness Consent: Risks, benefits, and alternatives have been discussed and questions answered. Patient agrees to proceed with procedure. Chief complaint: Benign neoplasm of duodenum Narrative: Choco Benoit is a 69 year old male here for another egd, had TA polyp in duodenum Review of Systems Review of Systems: All systems reviewed & are unremarkable except as noted in HPI and below PMFSH Past Medical History Medical History Small bowel polyp GERD (gastroesophageal reflux disease) Colon polyps Benign essential HTN Cleft palate Hypertension Surgical History Surgical History H/O left wrist surgery Family History Family History Mother Hypertension Cerebrovascular accident, Onset Age: 89 Father Family history of malignant neoplasm, Onset Age: 94 Social History Social History Social History: Smoking status: Never smoker Second hand tobacco smoke exposure: No Alcohol intake: current Alcohol use details: Rarely have a beer Substance use: never Substance use type: does not use Living arrangements: with family Occupation/Education: occupation Gender identity (if verbalized by the patient): Male Sexual Orientation (if Verbalized by the Patient): Straight or Heterosexual Spiritual care concerns: No Meds Home Medications and Allergies Home Medications ?Medication ?Instructions ?Recorded ?Confirmed ?Type aspirin 81 mg tablet,delayed 81 mg PO DAILY 30 days #30 tabs 05/15/20 03/04/25 Rx release (Adult Low Dose Aspirin) mometasone 50 mcg/actuation nasal 1 spray intranasal DAILY 05/15/20 03/04/25 History spray pantoprazole 40 mg tablet,delayed 40 mg PO QAM #90 tabs 05/21/20 03/04/25 Rx release irbesartan 150 1 tablet PO DAILY #90 tabs 05/26/20 03/04/25 Rx mg-hydrochlorothiazide 12.5 mg tablet metoprolol succinate 100 mg 100 mg PO DAILY #90 tabs 05/26/20 03/04/25 Rx tablet,extended release 24 hr (Toprol XL) ferrous sulfate 325 mg (65 mg 325 mg PO DAILY 12/28/23 03/04/25 History iron) capsule,extended release rosuvastatin 5 mg tablet 5 mg PO DAILY 12/28/23 03/04/25 History doxazosin 8 mg tablet 8 mg PO HS 01/24/24 03/04/25 History hydralazine 10 mg tablet 10 mg PO TID PRN blood pressure 04/08/24 03/04/25 Rx greater than 160 #20 tabs Allergies Allergy/AdvReac Type Severity Reaction Status Date / Time No Known Allergies Allergy Verified 03/04/25 08:05 Vital Signs Vital Signs - 24 hr 03/04/25 08:06 Temperature 97.2 F L Pulse Rate 72 Respiratory Rate 20 Blood Pressure 186/95 H Pulse Oximetry 98 Oxygen Delivery Room Air Exam Const: General: comfortable and no acute distress HENMT: Face/Nose/Sinus: Normal nares present Eyes: General: appearance normal, both eyes and all related structures Neck: Neck: no JVD Resp: Auscultation: clear to auscultation bilaterally Cardio: Rate: regular rate Rhythm: regular rhythm GI: Inspection: non-distended GI Palp: Yes Soft to palpation Skin: General skin exam: normal color Neuro: General: gait normal Speech: normal speech Extrem: General: normal to inspection Psych: Mental Status: mental status grossly normal Assessment and Plan Assessment and plan (1) Small bowel polyp: Code(s): K63.89 - Other specified diseases of intestine Status: Acute Assessment and Plan: egd to reassess
[2025-03-04 09:10] VITALS: BP 130/75; PULSE 66; RESP 19; O2SAT 98
[2025-03-04 09:20] VITALS: BP 143/81; PULSE 60; RESP 19; O2SAT 98
[2025-03-04 09:30] VITALS: BP 131/79; PULSE 63; RESP 16; O2SAT 98
== END 2025-03-04 09:35 | disposition home or self-care (01) ==
PROVIDERS: PCP Student in an Organized Health Care Education/Training Program; Referring Provider Internal Medicine Gastroenterology; Visit Provider Internal Medicine Gastroenterology
PROC: 0DJ08ZZ Inspection of Upper Intestinal Tract, Via Natural or Artificial Opening Endoscopic (ICD-10-PCS; CPT 43251; principal; 2025-03-04 09:00)
DX: Z09 Encounter for follow-up examination after completed treatment for conditions other than malignant neoplasm (principal); K31.7 Polyp of stomach and duodenum; E66.9 Obesity, unspecified; Z68.38 Body mass index [BMI] 38.0-38.9, adult
CPT/HCPCS: 43251; 88305; 88312; 88342; J2003; J2704; J7120